=== PATIENT | female | born 1950 | race Hispanic/Latino ===

== ENCOUNTER 2018-09-11 10:33 | Inpatient (IN) | payer MEDICARE ==
[2018-09-11 11:16] VITALS: BMI 26.6
[2018-09-11] MEDS ORDERED: Sodium Chloride 0.9% 1,000 ML IV STA (11:20)
[2018-09-11 11:21] LABS: INR 1.24
[2018-09-11 11:23] LABS: BLOOD UREA NITROGEN 11 mg/dL (7-21); GFR NON-AFRICAN AMERICAN > 60
[2018-09-11 11:24] LABS: ALB/GLOB RATIO 1.1 (1.1-1.8); ALBUMIN 4.4 g/dL (3.0-4.8); BASO # 0.06 K/mm3 (0.0-2.0); BASO % 0.6 % (0.0-3.0); CALCIUM 9.4 mg/dL (8.4-10.5); EOS # 0.3 (0.0-0.7); EOS % 3.3 % (1.5-5.0); HEMOGLOBIN 11.3 g/dL (12.0-16.0); LYMPH # 1.4 (1.2-3.4); LYMPH % 13.8 % (22.0-35.0); MEAN CORPUSCULAR HEMOGLOBIN 31.1 pg (25.0-35.0); MEAN CORPUSCULAR HGB CONC 32.1 g/dl (31.0-37.0); MONO # 0.5 (0.1-0.6); MONO % 5.5 % (1.0-6.0); RBC 3.63 10^6/uL (3.5-6.1); RED CELL DISTRIBUTION WIDTH 13.2 % (11.5-14.5); WHITE BLOOD COUNT 9.8 10^3/uL (4.5-11.0)
[2018-09-11 11:25] LABS: ALT/SGPT 14 U/L (7-56); AST/SGOT 28 U/L (14-36); HDL CHOLESTEROL 41 mg/dL (29-60); LDL CHOLESTEROL 27 mg/dL (0-129)
[2018-09-11 11:26] LABS: TROPONIN I < 0.01 ng/mL
[2018-09-11] MEDS ORDERED: Iohexol 350 MG/100 ML VIAL ONE (11:29)
[2018-09-11] MEDS: Sodium Chloride 0.9% 1,000 ML IV SCH ×2 (11:30→20:00)
--- NOTE | 2018-09-11 11:31 | CT ---
Date of service: 09/11/2018 PROCEDURE: CT HEAD WITHOUT CONTRAST. HISTORY: Code stroke. Left lower extremity weakness COMPARISON: None available. TECHNIQUE: Axial computed tomography images were obtained through the head/brain without intravenous contrast. Radiation dose: Total exam DLP = 824.09 mGy-cm. This CT exam was performed using one or more of the following dose reduction techniques: Automated exposure control, adjustment of the mA and/or kV according to patient size, and/or use of iterative reconstruction technique. FINDINGS: HEMORRHAGE: No intracranial hemorrhage. BRAIN: Focal low attenuation noted at the upper portion of the left parietal lobe. There is also round focal hypodensity at the left aspect of the allyson. Mild volume loss and possible chronic microvascular ischemic changes. VENTRICLES: Unremarkable. No hydrocephalus. CALVARIUM: Unremarkable. PARANASAL SINUSES: Unremarkable as visualized. No significant inflammatory changes. MASTOID AIR CELLS: Unremarkable as visualized. No inflammatory changes. OTHER FINDINGS: None. IMPRESSION: No evidence of acute intracranial hemorrhage mass effect or midline shift. Ill defined focal hypodensity at the left basal ganglia may represent acute infarct. Low-attenuation focal in the upper left parietal lobe and in the left aspect of the allyson (may represent subacute infarct ). The above findings were reported to the emergency room at 11:10 a.m. on 09/11/2018
--- NOTE | 2018-09-11 11:31 | ED PDOC ---
Arrival/HPI - General Chief Complaint: Weakness/Neurological Deficit Time Seen by Provider: 09/11/18 11:03 Historian: Patient - History of Present Illness Narrative History of Present Illness (Text): 09/11/18 11:34 68 y/o F with a PMH of chronic neck pain presents to the Emergency Department, reports that she woke up with right leg weakness and was unable to ambulate. The R leg weakness has since resolved. However she also reports that she woke up with R arm weakness 3 days ago. She believed that this was related to her chronic neck pain which she receives injections for, so she did not seek emergency care at that time. The R arm weakness still persists. She states that she saw a neurologist, Dr. Santiago, who gave her paperwork to get labs and an MRI done. She was going to get imaging done today, but due to the new right leg weakness this morning, opted to come to the ED instead. Patient denies any other neurological symptoms: no vision change, dizziness or vertigo, facial droop, aphasia, sensory deficits, or left sided motor deficits. Patient denies any fevers, chills, headache, dizziness, chest pain, shortness of breath, dyspnea on exertion, cough, abdominal pain, nausea, vomiting, diarrhea, back pain, or any other complaint. Time/Duration: 4-6 hours Symptom Onset: Sudden Symptom Course: Unchanged Activities at Onset: Light Context: Home Past Medical History - Provider Review Nursing Documentation Reviewed: Yes - Cardiac Hx Cardiac Disorders: Yes Hx Hypertension: Yes - Pulmonary Hx Respiratory Disorders: Yes Hx Chronic Obstructive Pulmonary Disease (COPD): Yes - Neurological Hx Neurological Disorder: Yes Hx Transient Ischemic Attacks (TIA): Yes - HEENT Hx HEENT Disorder: No - Renal Hx Renal Disorder: No - Endocrine/Metabolic Hx Endocrine Disorders: No - Hematological/Oncological Hx Blood Disorders: No - Integumentary Hx Dermatological Disorder: No - Gastrointestinal Hx Gastrointestinal Disorders: No - Genitourinary/Gynecological Hx Genitourinary Disorders: No - Psychiatric Hx Psychophysiologic Disorder: No Hx Substance Use: No Family/Social History - Physician Review Nursing Documentation Reviewed: Yes Family/Social History: No Known Family HX Smoking Status: Unknown If Ever Smoked Hx Alcohol Use: No Hx Substance Use: No Allergies/Home Meds Allergies/Adverse Reactions: Allergies No Known Allergies Allergy (Verified 09/11/18 14:07) Home Medications: Home Meds Medication Instructions Recorded Confirmed Alprazolam [Xanax] 0.5 mg PO DAILY PRN 04/26/18 04/26/18 Gabapentin [Neurontin] 300 mg PO TID 04/26/18 04/26/18 Oxycodone HCl [Roxicodone] 30 mg PO BID 04/26/18 04/26/18 Rosuvastatin Calcium [Crestor] 10 mg PO DAILY 04/26/18 04/26/18 Tapentadol HCl [Nucynta] 50 mg PO Q6 04/26/18 04/26/18 Review of Systems - Physician Review All systems were reviewed & negative as marked: Yes - Review of Systems Constitutional: absent: Fevers Respiratory: absent: SOB, Cough Cardiovascular: absent: Chest Pain, Syncope Gastrointestinal: absent: Abdominal Pain Musculoskeletal: Arthralgias (R. leg weakness and R. arm weakness), Neck Pain (Chronic neck pain) Neurological: absent: Headache, Dizziness, Focal Weakness, Facial Droop Psychiatric: absent: Other (Aphasia) Physical Exam Vital Signs Reviewed: Yes Vital Signs Temp Pulse Resp BP Pulse Ox 09/11/18 11:26 98.8 F 86 17 133/70 95 09/11/18 10:45 98.8 F 96 H 17 144/88 96 Temperature: Afebrile Blood Pressure: Normal Pulse: Regular Respiratory Rate: Normal Appearance: Positive for: Well-Appearing Mental Status: Positive for: Alert and Oriented X 3 - Systems Exam Head: Present: Atraumatic, Normocephalic Pupils: Present: PERRL Mouth: Present: Moist Mucous Membranes Respiratory/Chest: Present: Clear to Auscultation, Respiratory Distress Cardiovascular: Present: Regular Rate and Rhythm Abdomen: No: Tenderness Upper Extremity: Present: Other (3/5 strength R. Arm, 5/5 strength L. Arm). No: Edema, Deformity Lower Extremity: Present: Other (5/5 strength on LE). No: Edema, Deformity Neurological: Present: GCS=15, Speech Normal Skin: Present: Warm, Dry Psychiatric: Present: Alert, Oriented x 3 Medical Decision Making ED Course and Treatment: 09/11/18 10:45 Impression: 68 y/o F presents to the Emergency Department complaining of R. leg weakness since since this morning (which has resolved) and R. arm weakness x3days. Plan: --Labs --Aspirin --Plavix --Saline IV --CTA Head/Neck --CT Head w/o contrast --EKG --CXR --Reassess and disposition Prior Visits: Notes and results from previous visits were reviewed. Patient called as a code stroke upon arrival due to new right leg weakness. On exam however leg weakness has resolved. Right arm weakness from three days ago persists. Patient went to CT. 09/11/18 11:[address]: No evidence of acute intracranial hemorrhage mass effect or midline shift. Ill defined focal hypodensity at the left basal ganglia may represent acute infarct. Low-attenuation focal in the upper left parietal lobe and in the left aspect of the allyson (may represent subacute infarct ). 09/11/18 11:16 EKG shows NSR at 88 BPM with normal QRS, normal axis, normal intervals, no acute ST/T wave abnormalities. Interpreted by me. 09/11/18 11:[address] Platt. Patient not a tPA candidate due to resolution of R leg weakness and prolonged duration (3 days) of R arm weakness, but can load with Plavix 300mg and give ASA 81mg. Get CTA head/neck, give IV fluids for permi ssible hypertension (BP systolic currently 144), keep HOB down 30 degrees. Imaging and plavix ordered, however patient states she took a baby ASA this morning (she does not take this daily, just did so today and yesterday due to the CVA symptoms). 1L NS bolus also ordered. Patient went to CTA. 09/11/18 12:20 p.m. Head/Neck CTA: No evidence of arterial occlusion or critical stenosis in the major intracranial and neck arteries. Partially imaged mass lesion at the central portion of the right lung extending to the right hilum suspicious for malignant neoplasm. Redemonstrated is hypodensity at the left parietal lobe may represent metastasis. 09/11/18 12:20 Radiology called, CTA neck shows R upper lung mass. Parietal lesion may represent metastasis rather than infarct. Advised CT chest for further evaluation, which was ordered. Findings discussed with patient and , who verbalized understanding. 09/11/18 12:38 New radiological findings discussed with Dr. Platt. Advised getting MRI brain both with and without contrast. 09/11/18 12:[address] Orozco admitting for Dr. Andersen, accepts patient to her service for admission. 09/11/18 13:[address]: 1. Evaluation is limited in the absence of intravenous contrast. Findings are most compatible with right suprahilar and perihilar malignant mass with postobstructive pneumonia in the right middle lobe and metastatic mediastinal lymphadenopathy. Central low-attenuation in the primary mass and lymph nodes most compatible with squamous cell carcinoma. 3. 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 09/11/18 13:25 Chest XRAY: Masslike opacity in the right perihilar region and middle lobe which may represent mass causing central obstruction with postobstructive pneumonia. Correlation with CT scan with intravenous contrast is recommended. - Lab Interpretations Lab Results: PT 14.0 SECONDS (9.4-12.5) H 09/11/18 10:50 INR 1.24 09/11/18 10:50 APTT 33.0 Seconds (26.9-38.3) 09/11/18 10:50 Troponin I < 0.01 ng/mL 09/11/18 10:50 Total Bilirubin 0.3 mg/dL (0.2-1.3) 09/11/18 10:50 AST 28 U/L (14-36) 09/11/18 10:50 ALT 14 U/L (7-56) 09/11/18 10:50 Alkaline Phosphatase 109 U/L (38-126) 09/11/18 10:50 Total Protein 8.4 g/dL (5.8-8.3) H 09/11/18 10:50 Albumin 4.4 g/dL (3.0-4.8) 09/11/18 10:50 Globulin 4.1 gm/dL 09/11/18 10:50 Albumin/Globulin Ratio 1.1 (1.1-1.8) 09/11/18 10:50 - RAD Interpretation Radiology Orders: 09/11/18 11:14 CHEST PORTABLE [RAD] Stat 09/11/18 11:20 CTA HEAD/NECK CODE STROKE [CT] Stat HEAD W/O (CODE STROKE) [CT] Stat - Medication Orders Current Medication Orders: Sodium Chloride (Sodium Chloride 0.9%) 1,000 mls @ 100 mls/hr IV .Q10H REGINE Sodium Chloride (Sodium Chloride 0.9%) 1,000 mls @ 999 mls/hr IV .Q1H1M STA Stop: 09/11/18 12:20 Discontinued Medications Aspirin (Aspirin Chewable) 81 mg PO STAT STA Stop: 09/11/18 11:21 Clopidogrel Bisulfate (Plavix) 300 mg PO STAT STA Stop: 09/11/18 11:21 NIHSS Scale ([place]) Time Performed: 10:50 - How Severe is the Stoke Baseline Level of Consciousness: 0=Alert LOC to Questions: 0=Both comments correct LOC to commands: 0=Obeys both correctly Best Gaze: 0=Normal Visual: 0=No visual loss Facial: 0=Normal Motor Arm - Left: 0=No drift Motor Arm - Right: 3=No effort against gravity (falls immediately) Motor Leg - Left: 0=No drift Motor Leg - Right: 0=No drift Limb Ataxia: 0=Absent Sensory: 0=Normal Best Language: 0=No aphasia Dysarthia: 0=Normal articulation Extinction & Inattention (Neglect): 0=Normal, no object Score: 3 Risk Level: Minor Stroke Risk - PA / [employer] / Resident Statement MD/DO has reviewed & agrees with the documentation as recorded. - Scribe Statement The provider has reviewed the documentation as recorded by the Kwame Huizar All medical record entries made by the Kwame were at my direction and personally dictated by me. I have reviewed the chart and agree that the record accurately reflects my personal performance of the history, physical exam, medical decision making, and the department course for this patient. I have also personally directed, reviewed, and agree with the discharge instructions and disposition. Disposition/Present on Arrival - Present on Arrival Any Indicators Present on Arrival: No History of DVT/PE: No History of Uncontrolled Diabetes: No Urinary Catheter: No History of Decub. Ulcer: No History Surgical Site Infection Following: None - Disposition Have Diagnosis and Disposition been Completed?: Yes Diagnosis: CVA (cerebral vascular accident), Mass of right lung Disposition: HOSPITALIZED Disposition Time: 12:51 Patient Plan: Admission Condition: STABLE
--- NOTE | 2018-09-11 12:31 | CT ---
Date of service: 09/11/2018 PROCEDURE: CT Angiography of the neck and brain. HISTORY: cva, left lower extremity weakness COMPARISON: None available. TECHNIQUE: CT angiography of the neck and intracranial arteries was performed. Coronal and sagittal maximum intensity projection reformated images were generated. Radiation dose: Total exam DLP = 377.23 mGy-cm. This CT exam was performed using one or more of the following dose reduction techniques: Automated exposure control, adjustment of the mA and/or kV according to patient size, and/or use of iterative reconstruction technique. FINDINGS: RIGHT CAROTID ARTERIES: Common Carotid Artery: Normal. Carotid Bifurcation: No evidence of significant stenosis. Internal Carotid Artery:Normal. External Carotid Artery (proximal branches): Normal. LEFT CAROTID ARTERIES: Common Carotid Artery: Normal. Carotid Bifurcation: No evidence of significant stenosis Internal Carotid Artery:Normal. External Carotid Artery (proximal branches): Normal. VERTEBRAL ARTERIES: Right Vertebral Artery: Normal. Left Vertebral Artery: Normal. OTHER FINDINGS: no aortic atherosclerotic calcification or mural plaque present. There is partially imaged mass lesion at the central portion of the right lung extending to the right hilum and associated with mediastinal lymphadenopathy suspicious for malignant neoplasm. INTERNAL CEREBRAL ARTERIES: Unremarkable. The skull base, petrous, cavernous and supraclinoid segments are bilaterally widely patent. ANTERIOR CEREBRAL ARTERIES: Unremarkable. A1 and A2 segments are widely patent. Smaller distal branches unremarkable, as visualized. MIDDLE CEREBRAL ARTERIES: Unremarkable. M1 and M2 segments are widely patent. Perisylvian branches grossly symmetric. POSTERIOR CIRCULATION: Basilar Artery: Unremarkable. Distal Vertebral Arteries: Unremarkable. Posterior Cerebral Arteries: Unremarkable. Posterior Inferior Cerebellar Arteries: Unremarkable. ANEURYSM/ VASCULAR MALFORMATIONS: None. OTHER FINDINGS: None. IMPRESSION: No evidence of arterial occlusion or critical stenosis in the major intracranial and neck arteries. Partially imaged mass lesion at the central portion of the right lung extending to the right hilum suspicious for malignant neoplasm. Redemonstrated is hypodensity at the left parietal lobe may represent metastasis. The above findings were reported to and discussed with the emergency room physician taking care of the patient at 12:20 p.m. on 09/11/2018
--- NOTE | 2018-09-11 13:14 | CT ---
Date of service: 09/11/2018 PROCEDURE: CT Chest without contrast HISTORY: further eval of mass found on R lung on cta neck COMPARISON: None available. TECHNIQUE: Contiguous axial images were obtained through the chest without intravenous contrast enhancement. Sagittal and coronal reconstructions were performed. Radiation dose: Total exam DLP = 160.59 mGy-cm. This CT exam was performed using one or more of the following dose reduction techniques: Automated exposure control, adjustment of the mA and/or kV according to patient size, and/or use of iterative reconstruction technique. FINDINGS: LUNGS: There is diffuse centrilobular emphysema in the lungs. There is abnormal low attenuation soft tissue in the right perihilar region with obstruction of the right middle lobe bronchus. There is airspace disease in the right middle lobe with multifocal areas of low-attenuation and cavitation. There is interlobular septal thickening in the right upper lobe. There is discoid subsegmental atelectasis in the right lower lobe. MEDIASTINUM: No aneurysm. Normal sized heart. Main pulmonary artery unremarkable. No vascular congestion. There are multiple mediastinal lymph nodes with central low attenuation, the largest subcarinal lymph node measures 2.6 x 2.4 cm enlarged precarinal lymph node with central low attenuation. There are multiple subcentimeter. There are aortic atherosclerotic calcification. PLEURA: No pleural fluid. No pneumothorax. BONES: No fracture. No destructive lesion. There is diffuse bone demineralization and multilevel degenerative changes in the spine. UPPER ABDOMEN: Grossly unremarkable. OTHER FINDINGS: There is elevation of the right hemidiaphragm. IMPRESSION: 1. Evaluation is limited in the absence of intravenous contrast. Findings are most compatible with right suprahilar and perihilar malignant mass with postobstructive pneumonia in the right middle lobe and metastatic mediastinal lymphadenopathy. Central low-attenuation in the primary mass and lymph nodes most compatible with squamous cell carcinoma. 3. 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
--- NOTE | 2018-09-11 13:17 | RAD ---
Date of service: 09/11/2018 HISTORY: Code Stroke COMPARISON: No prior. FINDINGS: LUNGS: There is masslike opacity in the right perihilar region and middle lobe. The lungs are hyperinflated and there is peribronchial thickening with chronic changes in both lungs. PLEURA: No pleural effusions or pneumothorax. CARDIOVASCULAR: The heart is normal in size. No aortic atherosclerotic calcifications present. OSSEOUS STRUCTURES: Within normal limits for the patient's age. VISUALIZED UPPER ABDOMEN: Normal. OTHER FINDINGS: There is elevation of the right hemidiaphragm. IMPRESSION: Masslike opacity in the right perihilar region and middle lobe which may represent mass causing central obstruction with postobstructive pneumonia. Correlation with CT scan with intravenous contrast is recommended.
[2018-09-11] MEDS ORDERED: Gadodiamide 287 MG/ML VIAL (15ML) IV ONE (14:19)
--- NOTE | 2018-09-11 14:49 | MRI ---
Date of service: 09/11/2018 PROCEDURE: MRI BRAIN WITH AND WITHOUT CONTRAST HISTORY: cva COMPARISON: Comparison is made to the previous study dated 07/24/2013 TECHNIQUE: Multiplanar, multisequence MR images of the brain were obtained with and without intravenous contrast enhancement. FINDINGS: HEMORRHAGE: None DWI: No evidence of an acute or early subacute infarction. BRAIN PARENCHYMA: There are ring-enhancing mass lesions in the inferior aspect of the left allyson in the left superior parietal frontal lobe and in the right posterior parietal occipital lobe surrounding with vasogenic edema highly suspicious for metastasis. There is diffuse edema involving the mid and inferior aspect of the allyson and extending to the left cerebral peduncle adjacent to the ring-enhancing 1.2 centimeter mass in the left inferior allyson. Mild volume loss and mild white matter changes likely represent chronic microvascular ischemic disease. ENHANCEMENT: Ring-enhancing brain lesion at the left allyson, left superior parietal lobe and right posterior parietal occipital lobe suggestive of metastasis likely from the patient's right lung mass. VENTRICLES: Unremarkable. No hydrocephalus. CRANIUM: Unremarkable. ORBITS: Grossly unremarkable. PARANASAL SINUSES/MASTOIDS: Mild mucosal thickening noted in the ethmoid sinuses. VASCULAR SYSTEM: Skull base flow voids intact. OTHER FINDINGS: None . IMPRESSION: No evidence of diffusion restriction to suggest acute or early subacute infarct. No evidence of acute intracranial hemorrhage. Ring-enhancing lesions in the left allyson left superior parietal and right posterior parietal occipital lobes surrounding with vasogenic edema consistent with brain metastasis likely from the patient's right lung mass.
--- NOTE | 2018-09-11 15:53 | CP.PCM.CON ---
<Hemant Sheikh - Last Filed: 09/11/18 18:01> History of Present Illness - History of Present Illness History of Present Illness: Hemant Sheikh PGY2 Neurology Consult Note for Dr. Platt 68 y/o F with a PMH of chronic neck pain presents with right leg weakness and right arm weakness. She states the right arm weakness began 3 days ago after she woke up from bed. Initially she believed that this was related to her chronic neck pain which she received injections. She saw a neurologist, Dr. Santiago, who gave her paperwork to get labs and an MRI done. However this morning she developed right leg weakness and decided to come to the hospital. Patient states she is unable to lift her right arm and is very annoyed because of it. She denies change in vision, slurring of speech, headaches, syncope, LOC, fall, dizziness, fever, chills, SOB, N/V or any other complaints at this time. PMH: chronic neck pain PSH: denies Allergies: NKDA Meds: Nucynta, crestor, nortryptyline, gabapentin Family Hx: denies Review of Systems - Neurological Neurological: Focal Weakness Past Patient History - Past Social History Smoking Status: Unknown If Ever Smoked - CARDIAC Hx Cardiac Disorders: Yes Hx Hypertension: Yes - PULMONARY Hx Respiratory Disorders: Yes Hx Chronic Obstructive Pulmonary Disease (COPD): Yes - NEUROLOGICAL Hx Neurological Disorder: Yes Hx Transient Ischemic Attacks (TIA): Yes - HEENT Hx HEENT Problems: No - RENAL Hx Chronic Kidney Disease: No - ENDOCRINE/METABOLIC Hx Endocrine Disorders: No - HEMATOLOGICAL/ONCOLOGICAL Hx Blood Disorders: No - INTEGUMENTARY Hx Dermatological Problems: No - GASTROINTESTINAL Hx Gastrointestinal Disorders: No - GENITOURINARY/GYNECOLOGICAL Hx Genitourinary Disorders: No - PSYCHIATRIC Hx Psychophysiologic Disorder: No Hx Substance Use: No Meds Allergies/Adverse Reactions: Allergies Allergy/AdvReac Type Severity Reaction Status Date / Time No Known Allergies Allergy Verified 09/11/18 14:07 - Medications Medications: Current Medications Atorvastatin Calcium (Lipitor) 40 mg PO DIN [facility] Gabapentin (Neurontin) 300 mg PO TID [facility]; Protocol Home Med (Home Med) 1 unit PO BID [facility] Sodium Chloride (Sodium Chloride 0.9%) 1,000 mls @ 100 mls/hr IV .Q10H [facility] Last Admin: 09/11/18 11:30 Dose: Not Given Nortriptyline HCl (Pamelor) 10 mg PO HS [facility] Physical Exam - Constitutional Appears: Non-toxic, No Acute Distress - Head Exam Head Exam: ATRAUMATIC, NORMAL INSPECTION, NORMOCEPHALIC - Eye Exam Eye Exam: EOMI, Normal appearance, PERRL - ENT Exam ENT Exam: Mucous Membranes Moist - Respiratory Exam Respiratory Exam: Clear to Auscultation Bilateral, NORMAL BREATHING PATTERN - Cardiovascular Exam Cardiovascular Exam: REGULAR RHYTHM, +S1, +S2 - GI/Abdominal Exam GI & Abdominal Exam: Normal Bowel Sounds, Soft - Neurological Exam Neurological exam: Alert, Oriented x3 Additional comments: 5/5 TEE strength, 2/5 RUE, sensation in tact bilaterally. 4/5 LE strength B/L right facial droop slight patella reflex brisk on right side Results - Vital Signs Recent Vital Signs: Last Vital Signs Temp 98.8 F 09/11/18 11:26 Pulse 80 09/11/18 14:47 Resp 16 09/11/18 14:47 BP 141/71 09/11/18 14:47 Pulse Ox 96 09/11/18 14:47 - Labs Result Diagrams: 09/11/18 10:50 09/11/18 10:50 Labs: Laboratory Results - last 24 hr 09/11/18 09/11/18 09/11/18 10:50 10:50 10:50 WBC 9.8 RBC 3.63 Hgb 11.3 L Hct 35.2 L MCV 97.0 MCH 31.1 MCHC 32.1 RDW 13.2 Plt Count 444 MPV 8.0 Neut % (Auto) 76.8 H Lymph % (Auto) 13.8 L [place] % (Auto) 5.5 Eos % (Auto) 3.3 Baso % (Auto) 0.6 Lymph # (Auto) 1.4 [place] # (Auto) 0.5 Eos # (Auto) 0.3 Baso # (Auto) 0.06 Absolute Neuts (auto) 7.55 H PT 14.0 H INR 1.24 APTT 33.0 Sodium 142 Potassium 3.3 L Chloride 103 Carbon Dioxide 30 Anion Gap 12 BUN 11 Creatinine 0.7 Est GFR ( Amer) > 60 Est GFR (Non-Af Amer) > 60 Random Glucose 118 H Calcium 9.4 Total Bilirubin 0.3 AST 28 ALT 14 Alkaline Phosphatase 109 Troponin I < 0.01 Total Protein 8.4 H Albumin 4.4 Globulin 4.1 Albumin/Globulin Ratio 1.1 Triglycerides 134 Cholesterol 264 H LDL Cholesterol Direct 27 HDL Cholesterol 41 Blood Type Blood Type Confirm Antibody Screen BBK History Checked 09/11/18 09/11/18 10:50 14:00 WBC RBC Hgb Hct MCV MCH MCHC RDW Plt Count MPV Neut % (Auto) Lymph % (Auto) [place] % (Auto) Eos % (Auto) Baso % (Auto) Lymph # (Auto) [place] # (Auto) Eos # (Auto) Baso # (Auto) Absolute Neuts (auto) PT INR APTT Sodium Potassium Chloride Carbon Dioxide Anion Gap BUN Creatinine Est GFR ( Amer) Est GFR (Non-Af Amer) Random Glucose Calcium Total Bilirubin AST ALT Alkaline Phosphatase Troponin I Total Protein Albumin Globulin Albumin/Globulin Ratio Triglycerides Cholesterol LDL Cholesterol Direct HDL Cholesterol Blood Type O POSITIVE Blood Type Confirm O POSITIVE Antibody Screen Negative BBK History Checked No verified bt Assessment & Plan - Assessment and Plan (Free Text) Assessment: 68 y/o F with a PMH of chronic neck pain presents with right leg weakness and right arm weakness. Plan: RUE weakness and RLE secondary to mestastes to brain and mass effect of tumors -aspirin statin given in ED -CT head showed possible mestastasis -CT chest showed hilar mass in right middle lobe and mestastatic mediastinal lymphadenopathy, intelobar septal thickening in right upper lobe -MRI brain shows ring enhancing lesions in left allyson, left superior parietal and right posterior occipital lobes with vasiogenic edema consistent with brain metastases -started on Decadron 10mng IV Q8H -Keppra 500 q12 -continue to monitor neuro status <Yordan Platt - Last Filed: 09/13/18 16:13> Meds - Medications Medications: Current Medications Acetaminophen (Tylenol 325mg Tab) 650 mg PO Q6H PRN PRN Reason: Pain, Mild (1-3) Last Admin: 09/12/18 04:31 Dose: 650 mg Albuterol/Ipratropium (Duoneb 3 Mg/0.5 Mg (3 Ml) Ud) 3 ml IH Q2H PRN PRN Reason: Shortness of Breath Last Admin: 09/12/18 01:18 Dose: 3 ml Atorvastatin Calcium (Lipitor) 40 mg PO DIN [facility] Last Admin: 09/12/18 18:08 Dose: 40 mg Gabapentin (Neurontin) 300 mg PO 0600,1600,2200 [facility]; Protocol Last Admin: 09/13/18 05:19 Dose: 300 mg Home Med (Home Med) 1 unit PO 1600,2200 [facility] Last Admin: 09/12/18 23:39 Dose: 1 unit Dexamethasone 10 mg/ Sodium (Chloride) 52.5 mls @ 150 mls/hr IV Q8 [facility] Last Admin: 09/13/18 14:58 Dose: 150 mls/hr Cefepime HCl (Maxipime 1gm) 1 gm in 100 mls @ 25 mls/hr IVPB Q12 [facility]; Protocol Last Admin: 09/13/18 10:17 Dose: 25 mls/hr Azithromycin (Zithromax 500mg In Ns) 500 mg in 250 mls @ 167 mls/hr IVPB DAILY [facility]; Protocol Last Admin: 09/13/18 11:17 Dose: 167 mls/hr Insulin Human Regular (Humulin R Low) 0 units SC ACHS [facility]; Protocol Last Admin: 09/13/18 11:36 Dose: 2 units Levetiracetam (Keppra) 500 mg PO BID [facility] Last Admin: 09/13/18 10:16 Dose: 500 mg Nortriptyline HCl (Pamelor) 10 mg PO HS [facility] Last Admin: 09/12/18 22:15 Dose: 10 mg Oxycodone HCl (Oxycontin Extended Release Tab) 40 mg PO 0600 [facility] Last Admin: 09/13/18 05:19 Dose: 40 mg Results - Vital Signs Recent Vital Signs: Last Vital Signs Temp 97.8 F 09/13/18 08:20 Pulse 85 09/13/18 08:20 Resp 20 09/13/18 08:20 BP 149/79 09/13/18 08:20 Pulse Ox 95 09/13/18 08:20 - Labs Result Diagrams: 09/12/18 13:10 09/12/18 13:10 Labs: Laboratory Results - last 24 hr 09/12/18 09/13/18 09/13/18 21:33 07:12 11:03 POC Glucose (mg/dL) 198 H 147 H 209 H 09/13/18 15:53 POC Glucose (mg/dL) 136 H Attending/Attestation - Attestation I have personally seen and examined this patient.: Yes I have fully participated in the care of the patient.: Yes I have reviewed all pertinent clinical information: Yes Notes (Text): I agree with the assessment and plan. Consult requested by Dr. Orozco. Symptoms are likely due to metastatic lung cancer. Will evaluate further with MRI and treat with steroids and Keppra. Thank you.
--- NOTE | 2018-09-11 17:08 | CARD ---
APPROVED REPORT Date of service: 09/11/2018 EKG Measurement Heart [id number] <Conclusion> Normal sinus rhythm Normal ECG
[2018-09-11] MEDS: TAPENTADOL 100 MG PO SCH (17:25)
[2018-09-11] MEDS: Dexamethasone 10 MG in Sodium Chloride 0.9% 50 ML IV SCH ×2 (18:03→21:08)
[2018-09-11] MEDS ORDERED: Influenza Vaccine 60 mcg/0.5 mL SYR (4YR UP) IM ONE (18:13)
[2018-09-11] MEDS ORDERED: Pneumococcal 23-Valent Vaccine IM ONE (18:13)
[2018-09-11] MEDS ORDERED: Albuterol-Ipratrop 3 mg / 0.5 (3 ml) UD IH PRN (19:57)
[2018-09-11] MEDS: Cefepime 1gm in NS 100ml 1 GM/100 ML BAG IVPB SCH (21:09)
--- NOTE | 2018-09-11 22:16 | HP ---
DATE OF EXAM: 09/11/2018 HISTORY OF PRESENT ILLNESS: The patient is a 68-year-old female. She usually suffers from chronic cervical disk disease. She usually takes pain medication and has been following with the pain management. The patient states three days ago, she woke up with right-sided weakness, she attributed to her neck pain and thought she is going to get better, but today morning when she woke up, she noticed weakness in her right leg. Also, she saw Dr. Santiago who advised her to go for further workup and had MRI done, but this morning when she got up, she had right weakness and she thought of probably having stroke, so she came to emergency room for further evaluation. No history of headache. No nausea. No vomiting. No diarrhea. No chest pain. No shortness of breath. Does have right arm weakness. PAST MEDICAL HISTORY: Significant for chronic neck pain and back pain. ALLERGIES: SHE IS NOT ALLERGIC TO ANY MEDICATION. MEDICATIONS AT HOME: She is on: 1. Gabapentin 300 three times a day. 2. Nortriptyline 10 mg at bedtime. 3. Crestor 10 mg daily. 4. Nucynta. SOCIAL HISTORY: She is an active smoker. She smokes one pack a day and socially drinks. PHYSICAL EXAMINATION: GENERAL: She is awake and alert and able to communicate. VITAL SIGNS: She is afebrile, pulse 101, respirations 18, and blood pressure 147/70. LUNGS: Bilateral good airflow. No rhonchi or crackle. HEART: S1 and S2 audible. ABDOMEN: Soft and nontender. No rebound. No guarding. NEUROLOGIC: She is awake and alert and able to communicate. She has right arm weakness, has positive pronator drift. LABORATORY DATA: WBC is 9.8, hemoglobin is 11.3, hematocrit is 35.2, and platelets are 444. PT of 14 and INR of 1.24. Chemistry; sodium 142, potassium 3.3, chloride 103, CO2 of 30, BUN 11, creatinine 0.7, and blood sugar 118. LFTs are within normal limits. Total cholesterol 264. Hemoglobin A1c 6.1. She had CT angio done that shows no evidence of arterial occlusion or critical stenosis in the major intracranial or neck artery partially imaged mass or lesion at the central portion of the right upper lung extending to the right hilum suspicious for malignant neoplasm. She had MRI of the brain done that shows no evidence of diffusion or restriction to suggest acute or early subacute infarct. No evidence of acute intracranial hemorrhage, ring enhancing lesion in the left allyson, left superior partial and right posterior parietal occipital lobe surrounding with vasogenic edema consistent with brain metastasis. She had CT scan of the chest done that was consistent with right suprahilar and perihilar malignant masses, post-obstructive pneumonia in the right middle lobe and mediastinal metastasis and intralobular septal thickening in the right upper lobe and most compatible with lymphangitic carcinomatosis. ASSESSMENT: 1. Right suprahilar and perihilar malignant mass, probably metastases to the allyson. 2. Right upper arm weakness. 3. Post-obstructive pneumonia. 4. Hyperlipidemia. PLAN: The patient has been started on IV steroid. She has been started on Keppra and started on Lipitor. She is on gabapentin and nortriptyline. I will request Dr. Eliezer Walker for CT-guided biopsy, Dr. Santos for evaluation of mass. We will start her on nebulizer treatment and start her on IV antibiotic. We will follow up in a.m. Tito Orozco MD
[2018-09-12] MEDS: Dexamethasone 10 MG in Sodium Chloride 0.9% 50 ML IV SCH ×3 (05:36→22:15)
[2018-09-12] MEDS: Cefepime 1gm in NS 100ml 1 GM/100 ML BAG IVPB SCH ×2 (09:38→22:16)
[2018-09-12] MEDS: Azithromycin 500MG/NS 250ml 500 MG/250 ML BAG IVPB SCH (11:06)
--- NOTE | 2018-09-12 12:15 | CP.PCM.PN ---
Subjective - Date & Time of Evaluation Date of Evaluation: 09/12/18 Time of Evaluation: 12:12 - Subjective Subjective: Neuro Follow-Up Note: Mrs. Price was evaluated this morning at bedside. Pt states that she is feeling better today. Per pt she is now able to move her right arm and can form a fist, which she admits not being able to do yesterday. She is aware of her MRI results. Presently she denies h/a, dizziness, visual changes, chest pain, pa lpitations, sob, cough, abd pain, n/v/d, fever/chills. Objective - Vital Signs/Intake and Output Vital Signs (last 24 hours): Temp Pulse Resp BP Pulse Ox 97.5 F L 91 H 20 148/77 96 09/12/18 06:00 09/12/18 10:00 09/12/18 06:00 09/12/18 06:00 09/12/18 06:00 Intake and Output: 09/12/18 09/12/18 06:59 18:59 Intake Total 520 Output Total 540 Balance -20 - Medications Medications: Current Medications Acetaminophen (Tylenol 325mg Tab) 650 mg PO Q6H PRN PRN Reason: Pain, Mild (1-3) Last Admin: 09/12/18 04:31 Dose: 650 mg Albuterol/Ipratropium (Duoneb 3 Mg/0.5 Mg (3 Ml) Ud) 3 ml IH Q2H PRN PRN Reason: Shortness of Breath Last Admin: 09/12/18 01:18 Dose: 3 ml Atorvastatin Calcium (Lipitor) 40 mg PO DIN [facility] Last Admin: 09/11/18 17:10 Dose: 40 mg Gabapentin (Neurontin) 300 mg PO 0600,1600,2200 [facility]; Protocol Home Med (Home Med) 1 unit PO 1600,2200 [facility] Dexamethasone 10 mg/ Sodium (Chloride) 52.5 mls @ 150 mls/hr IV Q8 [facility] Last Admin: 09/12/18 05:36 Dose: 150 mls/hr Cefepime HCl (Maxipime 1gm) 1 gm in 100 mls @ 25 mls/hr IVPB Q12 [facility]; Protocol Last Admin: 09/12/18 09:38 Dose: 25 mls/hr Azithromycin (Zithromax 500mg In Ns) 500 mg in 250 mls @ 167 mls/hr IVPB DAILY [facility]; Protocol Last Admin: 09/12/18 11:06 Dose: 167 mls/hr Levetiracetam (Keppra) 500 mg PO BID [facility] Last Admin: 09/12/18 09:38 Dose: 500 mg Nortriptyline HCl (Pamelor) 10 mg PO HS [facility] Last Admin: 09/11/18 21:38 Dose: 10 mg Oxycodone HCl (Oxycontin Extended Release Tab) 40 mg PO 0600 [facility] - Labs Labs: 09/11/18 10:50 09/11/18 10:50 PT 14.0 SECONDS (9.4-12.5) H 09/11/18 10:50 INR 1.24 09/11/18 10:50 APTT 33.0 Seconds (26.9-38.3) 09/11/18 10:50 - Constitutional Appears: Well, Non-toxic, No Acute Distress - Head Exam Head Exam: ATRAUMATIC, NORMAL INSPECTION, NORMOCEPHALIC - Eye Exam Eye Exam: EOMI, Normal appearance, PERRL. absent: Nystagmus Pupil Exam: NORMAL ACCOMODATION, PERRL - ENT Exam ENT Exam: Mucous Membranes Moist - Neck Exam Neck Exam: Full ROM, Normal Inspection - Respiratory Exam Respiratory Exam: NORMAL BREATHING PATTERN - Extremities Exam Extremities Exam: absent: Calf Tenderness, Full ROM, Pedal Edema Additional comments: FROM to LUE, BLE Decreased ROM to RUE however pt able to lift arm today - Back Exam Back Exam: Full ROM - Neurological Exam Neurological Exam: Alert, Awake, CN II-XII Intact, Oriented x3, Reflexes Normal Neuro motor strength exam: Left Upper Extremity: 5 (client services administrator 5/5), Right Upper Extremity: 3 (client services administrator 3/5), Left Lower Extremity: 5 (plantar flexion 5/5), Right Lower Extremity: 5 (plantar flexion 5/5) Additional comments: Speech clear, fluid No facial asymmetry noted FROM to LUE, BLE Decreased ROM to RUE however pt able to lift arm today No tremors or abnormal movements. No sensory deficits. - Psychiatric Exam Psychiatric exam: Normal Affect, Normal Mood - Skin Skin Exam: Normal Color Assessment and Plan (1) Brain metastasis Assessment & Plan: Imaging reviewed: -MRI Brain (09/11/18): No evidence of diffusion restriction to suggest acute or early subacute infarct. No evidence of acute intracranial hemorrhage. Ring- enhancing lesions in the left allyson left superior parietal and right posterior parietal occipital lobes surrounding with vasogenic edema consistent with brain metastasis likely from the patient's right lung mass. -CTA Head and neck (09/11/18): No evidence of arterial occlusion or critical stenosis in the major intracranial and neck arteries. Partially imaged mass lesion at the central portion of the right lung extending to the right hilum suspicious for malignant neoplasm. Redemonstrated is hypodensity at the left parietal lobe may represent metastasis. -CT Head (09/11/18): No evidence of acute intracranial hemorrhage mass effect or midline shift. Ill defined focal hypodensity at the left basal ganglia may represent acute infarct. Low-attenuation focal in the upper left parietal lobe and in the left aspect of the allyson (may represent subacute infarct ). -Right sided weakness improving. -Continue PT/OT -Pt is for lung biopsy this week. -Continue Decadron q8 for now; Continue Keppra q12. -Oncology consult pending. -Notify neuro team of any acute change in pt;s condition. Nichole Le, VILMA, DIRECTOR ADVERTISING Discussed with Dr. Platt Status: Acute
[2018-09-12] MEDS ORDERED: Barium Sulfate Susp 2.1% w/v, 2.0% w/w 450 mL Bottle PO ONE (12:27)
[2018-09-12] MEDS ORDERED: Iohexol 350 MG/100 ML VIAL ONE (12:39)
[2018-09-12 13:22] LABS: HEMOGLOBIN 10.6 g/dL (12.0-16.0); LYMPH # 0.8 (1.2-3.4); LYMPH % 7.3 % (22.0-35.0); MEAN CELL VOLUME 94.8 fl (80.0-105.0); MEAN CORPUSCULAR HEMOGLOBIN 30.7 pg (25.0-35.0); MEAN CORPUSCULAR HGB CONC 32.4 g/dl (31.0-37.0); MEAN PLATELET VOLUME 7.8 fl (7.0-11.0); MONO # 0.2 (0.1-0.6); MONO % 1.5 % (1.0-6.0); PLATELET COUNT 434 10^3/uL (120.0-450.0); RBC 3.45 10^6/uL (3.5-6.1); WHITE BLOOD COUNT 11.3 10^3/uL (4.5-11.0)
[2018-09-12 13:49] LABS: ALB/GLOB RATIO 1.1 (1.1-1.8); ALBUMIN 4.2 g/dL (3.0-4.8); ALT/SGPT 17 U/L (7-56); AST/SGOT 44 U/L (14-36); BLOOD UREA NITROGEN 10 mg/dL (7-21); CALCIUM 9.5 mg/dL (8.4-10.5); GFR NON-AFRICAN AMERICAN > 60
--- NOTE | 2018-09-12 13:52 | PN ---
DATE: 09/12/2018 SUBJECTIVE: The patient is 68-year-old, came to emergency room left upper and lower extremity weakness started on 3 days ago got worse yesterday morning, so came to ER had CTA and MRI done that shows in the left and right posterior parietal occipital lobe surrounding vasogenic edema consistent with brain mets. The patient was seen and examined, seems to be little upset about feeling alright, otherwise complaints of some neck pain, right upper extremity weakness. PHYSICAL EXAMINATION: VITAL SIGNS: The patient is afebrile. Pulse 90, respiration 20 and blood pressure 148/77. LUNGS: Bilateral fair airflow. No rhonchi or crackle. HEART: S1 and S2, audible. ABDOMEN: Soft and nontender. No rebound. No guarding. NEUROLOGIC: The patient is awake, alert and able to communicate. LABORATORY DATA: Hemoglobin A1C 6.1. ASSESSMENT: 1. Right suprahilar and perihilar malignant mass with post obstructive pneumonia in the right middle lobe and metastatic mediastinal lymphadenopathy. 2. Chronic degenerative disk disease. 3. Active smoker. 4. Left upper and lower extremity weakness. PLAN: Currently, the patient is on dexamethasone, she is on nebulizer treatment. She is on Keppra. She has been started on Lipitor. We will continue on Maxipime and gabapentin. She is on OxyContin. She is on Zithromax spoke to Dr. Eliezer Walker for CT-guided biopsy and awaiting Dr. Santos's input also. Tito Orozco MD
[2018-09-12 13:56] LABS: LYMPHOCYTE 3 % (22.0-35.0); NEUTROPHIL 97 % (50.0-70.0); PLATELET ESTIMATE NORMAL (NORMAL)
[2018-09-12] MEDS ORDERED: Insulin Regular 1 UNITS/0.01 ML ML SC ONE (14:00)
[2018-09-12] MEDS: TAPENTADOL 100 MG PO SCH ×3 (14:09→23:39)
[2018-09-12] MEDS ORDERED: Lidocaine 1% Inj (20ml) ONE (16:59)
[2018-09-12] MEDS ORDERED: Midazolam 2 MG/2 ML VIAL ONE (16:59)
[2018-09-12] MEDS: Insulin Reg-LOW-Coverage SC SCH ×2 (18:00→22:27)
[2018-09-13] MEDS: Dexamethasone 10 MG in Sodium Chloride 0.9% 50 ML IV SCH ×3 (05:18→21:30)
[2018-09-13] MEDS: oxyCODONE 20 mg ER Tab (oxyCONTIN) PO SCH (05:19)
[2018-09-13] MEDS ORDERED: oxyCODONE 20 mg ER Tab (oxyCONTIN) PO SCH (06:00)
[2018-09-13] MEDS: Insulin Reg-LOW-Coverage SC SCH ×4 (08:49→21:20)
[2018-09-13] MEDS: Cefepime 1gm in NS 100ml 1 GM/100 ML BAG IVPB SCH ×2 (10:17→21:30)
--- NOTE | 2018-09-13 10:19 | CON ---
DATE: 09/13/2018 CONSULT REQUESTED BY: Tito Orozco MD REASON FOR CONSULTATION: Lung mass, brain metastases. HISTORY OF PRESENT ILLNESS: Ms. Price is a 68-year-old female admitted to the hospital with right-sided arm weakness and left leg weakness. The left leg weakness has resolved. She still has right arm weakness. Stroke code was called in the ER, was found to have three lesions in the brain suspicious for metastatic disease. MRI of the brain showed ring-enhancing lesions in the left allyson, left superior parietal and right posterior parietal and occipital lobes with vasogenic edema. CAT scan of the chest without contrast showed right upper lobe mass with mediastinal adenopathy. She has been a heavy smoker. FAMILY HISTORY: Positive family history of lung cancer. Lot of family members had lung cancer. PAST MEDICAL HISTORY: Chronic neck pain and back pain. Hyperlipidemia, COPD, history of TIA in the past, hypertension. ALLERGIES: NO KNOWN DRUG ALLERGIES. HOME MEDICATIONS: Xanax, Neurontin 300 mg p.o. t.i.d., oxycodone 30 mg p.o. b.i.d., Crestor 10 mg daily. REVIEW OF SYSTEMS: Positive for right arm weakness, left leg weakness resolved, difficulty in swallowing, weight loss. Rest of the 12 point of review of system, reviewed and negative. PHYSICAL EXAMINATION: GENERAL: Comfortable in bed, in no acute distress. Thin built. VITAL SIGNS: Temperature 98.8, heart rate 86 per minute, respiratory 17 per minute, blood pressure 130/70, pulse ox 95% on room air. HEENT: Pallor positive. NECK: No lymphadenopathy. CHEST: Air entry present and decreased on the right side. No rhonchi. No crepitations. ABDOMEN: Soft, nontender. EXTREMITIES: No edema. No cyanosis. Right arm weakness present. CENTRAL NERVOUS SYSTEM: Alert, oriented x3. LABORATORY DATA: White count 11,000, hemoglobin 10.6, hematocrit 32.7, and platelets 434. Sodium 141, potassium 3.7, glucose 301, calcium 9.5, phosphorus 3.3, total bilirubin 0.3, AST 44, ALT 17. MEDICATIONS: Reviewed. ASSESSMENT: 1. Right upper lobe lung mass with mediastinal adenopathy suspicious for lung cancer. 2. Lesions in the brain, occipital, parietal, and left allyson suspicious for metastatic disease. 3. Residual right arm weakness likely related to metastatic lesions. 4. Hypertension. 5. Anemia. PLAN: CT-guided lung biopsy is planned for tomorrow. CT abdomen, pelvis ordered to be done stat. She will be a good candidate for gamma knife. I discussed with her if she is willing to go to [place]. We will arrange for gamma knife at [place] after the biopsy. I also discussed the treatment options, which will be chemotherapy for stage IV disease. She agreed for port placement. We will consider port placement with biopsy if possible. We will discuss with Dr. Eliezer Walker. Neurology consultation, Dr. Diaz, requested. We will do the swallow study. She has choking sensation with the food, which has been there for the past few months. Thank you, Dr. Orozco, for allowing us to participate at Ms. Roles' care. Parisa Santos MD
--- NOTE | 2018-09-13 10:50 | CT ---
Date of service: 09/12/2018 PROCEDURE: CT Abdomen and Pelvis with contrast HISTORY: r/o mets COMPARISON: Distant prior multiphasic abdomen MRI 03/11/2013. TECHNIQUE: Following oral and intravenous contrast administration, a CT examination of the abdomen and pelvis was performed from the domes of the diaphragms to the symphysis pubis with reformatted datasets provided not only axial but also sagittal and coronal series. Contrast dose: Omnipaque 350, 100 cc Radiation dose: Total exam DLP = 213.06 mGy-cm. This CT exam was performed using one or more of the following dose reduction techniques: Automated exposure control, adjustment of the mA and/or kV according to patient size, and/or use of iterative reconstruction technique. FINDINGS: LOWER THORAX: Inferomedial portion of large right pulmonary mass and probable postobstructive atelectasis reiterated with lung bases otherwise unremarkable appearing. LIVER: No definitive hepatic mass identified. Upper limits normal intrahepatic biliary duct pattern evident. GALLBLADDER AND BILE DUCTS: Mild to moderate gallbladder distention without radiodense cholelithiasis appreciable. Common bile duct appears upper limits normal caliber 6.5 mm a proximal and mid segments with distal most segment 6 mm caliber. Prominence of the ampulla is suggested and consideration of follow-up MRCP recommended. PANCREAS: Pancreas is atrophic without prominent pancreatic duct dilatation or definite mass identified. SPLEEN: Unremarkable. ADRENALS: There is a 4.6 x 2.5 cm mass related to the right adrenal gland, 63 Hounsfield units density, representing an interval finding compared prior MRI and likely reflective of metastasis. Normal appearing left adrenal gland. KIDNEYS AND URETERS: No obstructive uropathy bilaterally or radiodense urolithiasis. A 1.0 x 0.8 cm lucency seen at the medial midpole right kidney measuring only 48 Hounsfield units in prior chest CT without contrast 09/11/2018 performed about 1 hr after a CTA head and neck. This suspicious for a nodule rather than complex cyst and was not apparent in prior MRI 2012. Left kidney appears unremarkable. VASCULATURE: Nonaneurysmal abdominal aortic calcific atherosclerotic changes are identified. BOWEL: There is a moderate amount retained fecal material scattered throughout the large bowel, predominantly proximally. No bowel obstruction evident. No definitive gross mural thickening or local mesenteric reaction. Limited sigmoid diverticulosis without diverticulitis. Thickening of this segment of bowel is apparent, limited evaluation due to collapse here. Clinically correlate. APPENDIX: Normal appendix. PERITONEUM: Unremarkable. No free fluid. No free air. LYMPH NODES: Unremarkable. No enlarged lymph nodes. BLADDER: Unremarkable. REPRODUCTIVE: Prior hysterectomy or partial hysterectomy suspected. BONES: Minimal anterior wedge compression fracture of L1, age indeterminate. No destructive focal bony lesion appreciated. OTHER FINDINGS: None. IMPRESSION: 1. A 4.2 cm right adrenal mass is suspicious for metastasis. No significant lymphadenopathy in the abdomen or pelvis. 2. Upper limits normal caliber CBD and intrahepatic bile ducts prominent ampulla suggested. Follow-up MRCP advised. 3. 1 cm nodule right kidney pole. 4. Mild sigmoid diverticulosis without definite diverticulitis. Same segment of bowel is collapsed with mural thickening suspected. Clinically correlate further. 5. Inferior extent of mass/atelectasis at right lung reiterated. 6. Other lesser findings as discussed above.
[2018-09-13] MEDS: Azithromycin 500MG/NS 250ml 500 MG/250 ML BAG IVPB SCH (11:17)
--- NOTE | 2018-09-13 15:05 | PN ---
DATE: 09/13/2018 SUBJECTIVE: The patient is a 68-year-old, seen and examined, lying in bed. She states her right upper and lower extremity weakness has significantly improved. She is anxious to go home. PHYSICAL EXAMINATION: GENERAL: She is fully awake, alert, oriented and communicative. VITAL SIGNS: She is afebrile. Pulse 85, respirations 20 and blood pressure 149/79. LUNGS: Bilateral good airflow. No rhonchi or crackle. HEART: S1 and S2, audible. ABDOMEN: Soft and nontender. No rebound. No guarding. NEUROLOGIC: She is awake, alert, able to communicate. She has upper and lower extremities. LABORATORY DATA: Blood sugar is 209. She has CT scan of the abdomen and pelvis done that shows diverticulosis and she has 4.6 x 2.5 cm mass related to the right adrenal gland, probably metastasis. ASSESSMENT: 1. Right upper and lower extremity weakness, probably secondary to the improving by intravenous steroids. 2. Right suprahilar and perihilar mass. 3. Post obstructive pneumonia. 4. History of hypertension. 5. Hyperlipidemia. 6. Active smoker. PLAN: Dr. Santos's input noted and appreciated. We will continue the patient on nebulizer treatment. She is currently on Decadron we will continue that. Monitor her blood sugar. She is on Keppra. She is on steroids. She is getting IV antibiotics. She is scheduled to have CT guided biopsy done tomorrow. Tito Orozco MD
--- NOTE | 2018-09-13 15:07 | CP.PCM.PCO ---
Physician Communication Note - Physician Communication Note Physician Communication Note: Dr. Diaz consulted for neuro. We will sign off; reconsult prn. Thank you
[2018-09-13] MEDS: TAPENTADOL 100 MG PO SCH ×2 (16:58→21:19)
[2018-09-14] MEDS: Dexamethasone 10 MG in Sodium Chloride 0.9% 50 ML IV SCH ×2 (05:42→14:56)
[2018-09-14] MEDS: oxyCODONE 20 mg ER Tab (oxyCONTIN) PO SCH (05:43)
[2018-09-14] MEDS: Insulin Reg-LOW-Coverage SC SCH ×4 (08:46→21:14)
--- NOTE | 2018-09-14 08:54 | CON ---
DATE: 09/13/2018 NEUROLOGY CONSULT CHIEF COMPLAINT: Evaluation for brain metastasis for gamma knife. HISTORY OF PRESENT ILLNESS: Mrs. Price is a 68-year-old woman who is a chronic smoker, history of hyperlipidemia, COPD, and hypertension, who came to the hospital for right-sided weakness, mostly in the arm as well as in the right leg, but it had resolved. She underwent an MRI of the brain, which showed ring enhancing lesions in the left allyson, left superior parietal and right posterior parietal and occipital area with some vasogenic edema indicating brain metastatic disease likely from prior, which is lung cancer since the CAT scan of the chest showed right upper lobe mass and mediastinal adenopathy. She has been a heavy smoker. She would definitely get gamma knife as an outpatient, which has been arranged with Dr. Verdin at [facility] in [place] after her lung biopsy. She still has right upper extremity weakness. Case is discussed with her in detail at bedside. FAMILY HISTORY: Positive for a history of lung cancer; lots of family members had lung cancer. PAST MEDICAL HISTORY: Chronic neck and back pain, hyperlipidemia, COPD, hypertension. ALLERGIES: NO KNOWN DRUG ALLERGIES. HOME MEDICATIONS: Reviewed by nurse reconciliation sheet. REVIEW OF SYSTEMS: A 14-point review of systems negative except in the HPI. PHYSICAL EXAMINATION GENERAL: The patient is sitting up in bed, in no acute distress. VITAL SIGNS: Temperature 97.8, pulse rate of 85, blood pressure 149/79, respiratory rate 20, oxygen saturation of 95% on room air. HEENT: Head is atraumatic, normocephalic. PERRLA. Extraocular movements intact. NECK: Supple. No JVD. No adenopathy noted. LUNGS: Clear to auscultation. No adventitious sounds. HEART: S1 and S2. Normal rate and rhythm. No murmurs, rubs, or gallops. ABDOMEN: Soft, nontender, and nondistended. Bowel sounds are present. EXTREMITIES: No clubbing. No cyanosis. Peripheral pulses are 2+ bilaterally. NEURO: The patient is alert, oriented to person, place, month, and year. Speech is fluent without any errors. Cranial nerves II through XII are intact. Motor exam; there is right upper extremity weakness, 4/5 and 5-/5 right lower extremity weakness. Toes are upgoing bilaterally, left side is intact. DTRs are 2+ throughout. Coordination; [id number] intact. No dysmetria noted except for her difficulty to do [id number] of the right arm due to right-sided weakness from underlying metastasis. Gait is deferred for now. IMPRESSION: Right upper lung mass with mediastinal adenopathy, likely this is due to lung cancer with metastatic lesions at the left allyson, left superior parietal and right posterior parietal occipital lobes with vasogenic edema. PLAN: Currently we will recommend; 1. Gamma-knife procedure as an outpatient with Dr. Jimi Verdin at [facility] in [place] after she has received a lung biopsy. 2. Continue with Keppra 500 mg p.o. b.i.d. for seizure prophylaxis. 3. Dexamethasone IV every 8 hours of 10 mg for her vasogenic edema, tapering Medrol-Dosepak as an outpatient. 4. Continue with her current dose of gabapentin and nortriptyline for underlying chronic neck pain and radiculopathy. 5. Followup with Oncology in regards to her metastatic cancer. Thank you for this consult. Adla Diaz MD
[2018-09-14] MEDS: Cefepime 1gm in NS 100ml 1 GM/100 ML BAG IVPB SCH ×2 (09:03→21:13)
[2018-09-14] MEDS: Azithromycin 500MG/NS 250ml 500 MG/250 ML BAG IVPB SCH (09:04)
[2018-09-14] MEDS ORDERED: Midazolam 2 MG/2 ML VIAL ONE (12:17)
[2018-09-14] MEDS ORDERED: Lidocaine 1% Inj (20ml) ONE (12:17)
[2018-09-14] MEDS ORDERED: Midazolam 2 MG/2 ML VIAL IVP ONE (12:35)
[2018-09-14] MEDS ORDERED: Sodium Chloride 0.45% 1,000 ML IV SCH (13:00)
[2018-09-14 14:03] VITALS: RESP 20; O2SAT 96
[2018-09-14] MEDS ORDERED: Dexamethasone 4 mg/1 ml ONE (14:29)
[2018-09-14 14:34] VITALS: PULSE 53
--- NOTE | 2018-09-14 15:40 | RAD ---
Date of service: 09/14/2018 HISTORY: rt lung BX Relevant interventional procedure(s): September 14, 2018 CT-guided lung biopsy. COMPARISON: 09/11/2018. Single-view chest. 09/11/2018 CT thorax. FINDINGS: LUNGS: Stable findings right lower lobe. PLEURA: Tiny right apical pneumothorax. The finding is marked on the study for review. CARDIOVASCULAR: No atherosclerotic calcification present Normal. OSSEOUS STRUCTURES: No significant abnormalities. VISUALIZED UPPER ABDOMEN: Normal. OTHER FINDINGS: None. IMPRESSION: Tiny postprocedural right pneumothorax Otherwise, no interval change.
--- NOTE | 2018-09-14 16:23 | PN ---
DATE: 09/14/2018 SUBJECTIVE: The patient is 68-year-old, seen and examined. No chest pain, no shortness of breath. No nausea or vomiting. No diarrhea. Her right leg weakness has almost 100% improved. She still have right upper extremity weakness. PHYSICAL EXAMINATION VITAL SIGNS: She is afebrile. Pulse 70, respirations 20 and blood pressure 153/73. LUNGS: Bilateral fair airflow. No rhonchi or crackle. HEART: S1 and S2 audible. ABDOMEN: Soft and nontender. No rebound, no guarding. NEUROLOGIC: The patient is awake, alert, oriented, able to communicate. EXTREMITIES: She has right upper extremity weakness. Right lower extremity almost 5/5. LABORATORY DATA: Blood sugars 155. ASSESSMENT: 1. Status post right upper and lower extremity weakness. 2. Metastatic lesion in left allyson and left superior parietal and right posterior parietal occipital lobes surrounded by vasogenic edema. 3. Suprahilar lung mass. 4. Renal mass. 5. Chronic degenerative disc disease. PLAN: Currently, the patient is on dexamethasone every 8 hours. The patient is on Nucynta. She is getting Keppra. She is on statins. She is getting cefepime, Zithromax. She is scheduled to have CT-guided biopsy, lung biopsy done today. We will monitor her closely. If she remains stable will discharge tomorrow. She is scheduled to have gamma knife radiation to the brain . Tito Orozco MD
[2018-09-14] MEDS: TAPENTADOL 100 MG PO SCH (17:32)
[2018-09-14] MEDS ORDERED: Tmp-Smz 800 mg-160 mg DS Tab PO ONE (18:00)
[2018-09-14] MEDS ORDERED: Tmp-Smz 800 mg-160 mg DS Tab PO SCH (18:00)
--- NOTE | 2018-09-14 20:48 | CT ---
PROCEDURE: CT guided right lung biopsy. HISTORY: 5 cm right hilar mass with metastatic disease. Previous smoker. Evaluate for lung carcinoma PHYSICIAN(S): Eliezer Walker MD. TECHNIQUE: The relative risks and indications of the procedure were explained to the patient and consent obtained. The patient was placed supine on the CT scanner and preliminary images through the mid lungs obtained. Conscious sedation and monitoring were provided throughout the procedure by a nurse. There is a 5 cm mass in the right hilum involving primarily the right middle lobe. A right anterior approach was selected and the area prepped and draped in the usual sterile fashion. 1% Xylocaine was used to anesthetize the skin and soft tissues. A 18 gauge guiding needle was advanced into the 5 cm right hilar mass. Its position was confirmed with CT. Using coaxial technique, multiple core biopsies were obtained. The postprocedure images show no evidence of large pneumothorax or significant hemorrhage. A tiny pneumothorax was present. The patient was asymptomatic. Chest x-ray was ordered. IMPRESSION: 1. CT-guided right lung biopsy as described above.
[2018-09-14] MEDS ORDERED: TAPENTADOL 100 MG PO SCH (21:26)
[2018-09-15] MEDS ORDERED: Pantoprazole 40 mg EC Tab PO SCH (06:00)
[2018-09-15] MEDS: oxyCODONE 20 mg ER Tab (oxyCONTIN) PO SCH (06:20)
[2018-09-15] MEDS: Insulin Reg-LOW-Coverage SC SCH (08:57)
[2018-09-15] MEDS ORDERED: Tmp-Smz 800 mg-160 mg DS Tab PO SCH (10:00)
[2018-09-15] MEDS: Cefepime 1gm in NS 100ml 1 GM/100 ML BAG IVPB SCH (10:04)
[2018-09-15] MEDS: Azithromycin 500MG/NS 250ml 500 MG/250 ML BAG IVPB SCH (10:04)
[2018-09-15 12:04] VITALS: BP 139/70; TEMP 97.4
--- NOTE | 2018-09-15 15:33 | DS ---
HISTORY OF PRESENT ILLNESS: The patient is a 68-year-old, who was admitted with left-sided weakness, upper more than the lower extremity. She had CT scan of the brain done that revealed in the left palm, so she underwent MRI that also confirmed that. However, CT scan of the chest showed she had right suprahilar mass along with perihilar lymphadenopathy, right hemiparesis, bone mets the , severe vasogenic edema, history of cervical degenerative disc disease, so the patient was admitted and started on IV steroids with significant improvement in her weakness. She was found to have post obstructive pneumonia and she has been on IV antibiotic, nebulizer treatment, doing very well. PHYSICAL EXAMINATION: GENERAL: She is awake, alert, oriented, anxious to go home, no chest pain or shortness of breath. VITAL SIGNS: She is afebrile, pulse 53, respirations are 20, blood pressure 173/78. LUNGS: Bilateral fair airflow. No rhonchi or crackle. HEART: S1 and S2 audible. ABDOMEN: Soft, nontender. No rebound. No guarding. NEUROLOGIC: The patient is awake and alert, able to communicate. LABORATORY DATA: Blood sugar is 110. ASSESSMENT: 1. Right hilar mass. 2. Left one time met with vasogenic edema. 3. Cervical degenerative disc disease. 4. Adrenal mass. PLAN: The patient is being discharged home today. She will be on Decadron 4 mg twice a day. She is on Bactrim DS one tablet twice a day. She will be discharge home on Keppra, Lipitor. We will discontinue her IV antibiotics. She will resume her pain medication regimen as she was getting at home. She will resume her . She is schedule to have gamma knife radiation to the brain and after that she will follow with Dr. Santos, for further management. Tito Orozco MD
== END 2018-09-15 14:04 | disposition home or self-care (01) | DRG 180 ==
LOC: ED 10:33 → ERH 12:51 → 2RNO 14:53 → 3RNO 09-12 19:13
PROVIDERS: ADMIT Internal Medicine; ATTEND Internal Medicine
PROC: BB27ZZZ Computerized Tomography (CT Scan) of Right Tracheobronchial Tree (ICD-10-PCS; 2018-09-14)
PROC: 0BBC3ZX Excision of Right Upper Lung Lobe, Percutaneous Approach, Diagnostic (ICD-10-PCS; principal; 2018-09-14 11:30)
DX: C34.01 Malignant neoplasm of right main bronchus (principal); G93.6 Cerebral edema; J18.9 Pneumonia, unspecified organism; C79.31 Secondary malignant neoplasm of brain; C79.51 Secondary malignant neoplasm of bone; G81.91 Hemiplegia, unspecified affecting right dominant side; J44.0 Chronic obstructive pulmonary disease with (acute) lower respiratory infection; D64.9 Anemia, unspecified; E27.9 Disorder of adrenal gland, unspecified; E78.5 Hyperlipidemia, unspecified; F17.210 Nicotine dependence, cigarettes, uncomplicated; G89.29 Other chronic pain; I10 Essential (primary) hypertension; M50.30 Other cervical disc degeneration, unspecified cervical region; N28.89 Other specified disorders of kidney and ureter; Z79.899 Other long term (current) drug therapy; Z80.1 Family history of malignant neoplasm of trachea, bronchus and lung; Z86.73 Personal history of transient ischemic attack (TIA), and cerebral infarction without residual deficits

== ENCOUNTER 2018-09-21 06:32 | Day surgery (SDC) | payer MEDICARE ==
[2018-09-19 11:18] VITALS: BMI 18.9
[2018-09-21 07:06] LABS: BASO # 0.01 K/mm3 (0.0-2.0); BASO % 0.1 % (0.0-3.0); EOS # 0.3 (0.0-0.7); EOS % 1.8 % (1.5-5.0); HEMOGLOBIN 11.7 g/dL (12.0-16.0); LYMPH # 2.4 (1.2-3.4); LYMPH % 15.4 % (22.0-35.0); MEAN CELL VOLUME 96.3 fl (80.0-105.0); MEAN CORPUSCULAR HEMOGLOBIN 30.6 pg (25.0-35.0); MEAN CORPUSCULAR HGB CONC 31.8 g/dl (31.0-37.0); MEAN PLATELET VOLUME 8.2 fl (7.0-11.0); MONO % 6.5 % (1.0-6.0); RBC 3.82 10^6/uL (3.5-6.1); RED CELL DISTRIBUTION WIDTH 13.9 % (11.5-14.5); WHITE BLOOD COUNT 15.3 10^3/uL (4.5-11.0)
[2018-09-21 07:18] LABS: INR 1.06; PARTIAL THROMBOPLASTIN TIME 26.2 Seconds (26.9-38.3)
[2018-09-21] MEDS ORDERED: Lidocaine PF 2% (5 ml) Inj (For Cardiac Arrhy) ONE ×2 (07:23→08:36)
[2018-09-21 07:24] LABS: BLOOD UREA NITROGEN 20 mg/dL (7-21); CALCIUM 9.5 mg/dL (8.4-10.5); GFR NON-AFRICAN AMERICAN > 60
[2018-09-21] MEDS ORDERED: Midazolam 2 MG/2 ML VIAL ONE ×2 (08:49→08:53)
[2018-09-21] MEDS ORDERED: Sodium Chloride 0.45% 1,000 ML IV SCH (09:45)
[2018-09-21 10:19] VITALS: RESP 18; TEMP 97.9
[2018-09-21 11:19] VITALS: BP 113/57; PULSE 84; O2SAT 93
--- NOTE | 2018-09-21 17:18 | VASCULAR ---
PROCEDURE: Ultrasound and fluoroscopic right internal jugular venous access port. CLINICAL HISTORY: Lung carcinoma.Venous port for chemotherapy. PHYSICIAN(S): Eliezer Walker M.D. TECHNIQUE: The relative risks and indications of the procedure were explained to the patient and consent obtained. The patient was placed supine on the arteriogram table and the right neck and chest prepped and draped in the usual sterile fashion. Conscious sedation monitoring was provided throughout the procedure by a nurse. Antibiotics were given prior to the procedure. Under direct ultrasound guidance, the right internal jugular vein was punctured with a micro-puncture set. A 0.035 angled Glidewire was advanced into the IVC. A 4 cm incision was made below the right clavicle and the pocket blunted dissected. A 8 Tajik single-lumen catheter, 22 cm long, was advanced to the SVC/RA junction. The catheter was trimmed and attached to the port. The port aspirates and injects easily. The port was placed in the pocket and closed in 2 layers. The patient tolerated the procedure well. IMPRESSION: Ultrasound and fluoroscopically placed right internal jugular venous access port.
== END 2018-09-21 11:55 | disposition home or self-care (01) ==
LOC: SDS 06:32
PROVIDERS: ATTEND Radiology Vascular & Interventional Radiology
DX: C34.90 Malignant neoplasm of unspecified part of unspecified bronchus or lung (principal); J44.9 Chronic obstructive pulmonary disease, unspecified
CPT/HCPCS: 36415; 36561; 76937; 77001; 80048; 85025; 85610; 85730; 99152; C1769; C1788; J0690; J1644; J2250; J2405; J3010; J7030

== ENCOUNTER 2018-10-23 13:04 | Inpatient (IN) | payer MEDICARE ==
[2018-10-23 13:09] VITALS: BMI 18.3
[2018-10-23] MEDS ORDERED: cefTRIAXone 1 gm 1 GM/100 ML BAG IVPB STA (13:24)
[2018-10-23] MEDS ORDERED: Fluconazole IV 400mg/200ml NS 200 ML IVPB STA (13:24)
--- NOTE | 2018-10-23 13:32 | ED PDOC ---
Arrival/HPI - General Chief Complaint: Dizziness/Lightheaded Time Seen by Provider: 10/23/18 13:11 Historian: Patient - History of Present Illness Narrative History of Present Illness (Text): 10/23/18 13:25 A 68 year old female, whose past medical history includes lung CA with metastasis to the brain, metastatic lung CA s/p gamma knife treatment, presents to the emergency department today after being advised by her PMD to get evaluated. Patient complains of of headache, generalized weakness, dysphia. Patient has been feeling weak and with a headache for the past few days. She complains of reported dysphasia a few days ago. Patient sent by PMD for evaluation for suspicion of esophagitis. She denies fevers, chills, dizziness, chest pain, shortness of breath, dyspnea on exertion, cough, abdominal pain, nausea, vomiting, diarrhea, back pain, neck pain, urinary/bowel changes, or any other complaint. PMD: Dr. Santos Symptom Course: Worsening Activities at Onset: Rest, Light Context: Home Past Medical History - Provider Review Nursing Documentation Reviewed: Yes - Infectious Disease Hx of Infectious Diseases: None - Reproductive Menopause: Yes - Cardiac Hx Pacemaker: No - Pulmonary Hx Respiratory Disorders: Yes Hx Chronic Obstructive Pulmonary Disease (COPD): Yes Other/Comment: chest cancer and brain cancer on chemo. last chemo last week - Neurological Hx Paralysis: No - HEENT Hx HEENT Disorder: No - Renal Hx Renal Disorder: No - Endocrine/Metabolic Hx Endocrine Disorders: No - Hematological/Oncological Hx Blood Transfusions: No - Integumentary Hx Dermatological Disorder: No - Musculoskeletal/Rheumatological Hx Musculoskeletal Disorders: Yes - Gastrointestinal Hx Gastrointestinal Disorders: No - Genitourinary/Gynecological Hx Genitourinary Disorders: No - Psychiatric Hx Emotional Abuse: No Hx Physical Abuse: No Hx Substance Use: No - Anesthesia Hx Anesthesia Reactions: No Hx Malignant Hyperthermia: No - Suicidal Assessment Feels Threatened In Home Enviroment: No Family/Social History - Physician Review Nursing Documentation Reviewed: Yes Family/Social History: No Known Family HX Smoking Status: Former Smoker Hx Alcohol Use: Yes (SOCIAL WINE) Hx Substance Use: No Allergies/Home Meds Allergies/Adverse Reactions: Allergies No Known Allergies Allergy (Verified 09/11/18 14:07) Home Medications: Home Meds Medication Instructions Recorded Confirmed Gabapentin [Neurontin] 300 mg PO TID 04/26/18 10/23/18 Rosuvastatin Calcium [Crestor] 10 mg PO DAILY 04/26/18 10/23/18 Nortriptyline [Pamelor] 10 mg PO HS 09/11/18 10/23/18 oxyCODONE [oxyCONTIN Extended 40 mg PO DAILY 09/12/18 10/23/18 Release Tab] Aspirin [Ecotrin] 81 mg PO DAILY 09/19/18 10/23/18 Pantoprazole [Protonix] 40 mg PO DAILY 09/19/18 10/23/18 Review of Systems - Physician Review All systems were reviewed & negative as marked: Yes - Review of Systems Constitutional: Other (Weakness). absent: Fevers Respiratory: absent: SOB, Cough Cardiovascular: absent: Chest Pain, EDWARDS Gastrointestinal: absent: Abdominal Pain, Stool Changes, Diarrhea, Nausea, Vomiting Genitourinary Female: absent: Urine Output Changes Musculoskeletal: absent: Back Pain, Neck Pain Neurological: Headache. absent: Dizziness Physical Exam Vital Signs Reviewed: Yes Vital Signs Temp Pulse Resp BP Pulse Ox 10/23/18 13:04 99.6 F 96 H 18 107/64 95 Temperature: Afebrile Blood Pressure: Normal Pulse: Regular Respiratory Rate: Normal Appearance: Positive for: Well-Appearing, Non-Toxic, Comfortable Pain Distress: None Mental Status: Positive for: Alert and Oriented X 3 - Systems Exam Head: Present: Atraumatic, Normocephalic Pupils: Present: PERRL Extroacular Muscles: Present: EOMI Conjunctiva: Present: Normal Mouth: Present: Moist Mucous Membranes Pharnyx: Present: ERYTHEMA Neck: Present: Normal Range of Motion Respiratory/Chest: Present: Clear to Auscultation, Good Air Exchange. No: Respiratory Distress, Accessory Muscle Use Cardiovascular: Present: Regular Rate and Rhythm, Normal S1, S2. No: Murmurs Abdomen: No: Tenderness, Distention, Peritoneal Signs Back: Present: Normal Inspection Upper Extremity: Present: Normal Inspection. No: Cyanosis, Edema Lower Extremity: Present: Normal Inspection. No: Edema Neurological: Present: GCS=15, CN II-XII Intact, Speech Normal Skin: Present: Warm, Dry, Normal Color. No: Rashes Psychiatric: Present: Alert, Oriented x 3, Normal Insight, Normal Concentration Medical Decision Making ED Course and Treatment: 10/23/18 13:33 Impression: A 68 year old female presents to the emergency department for a complaint of several day duration headache, generalized weakness, and reported dysphasia. suspect mets Plan: -- Head CT -- Blood Culture -- Labs -- Rocephin and Diflucan -- Reassess and disposition Prior Visits: Notes and results from previous visits were reviewed. Progress Notes: 10/23/18 14:37: Case discussed in detail with Dr. Orozco who accepts patient to her service. PROCEDURE: CT HEAD WITHOUT CONTRAST. Dictator : Erasmo Fairbanks MD Report Date : 10/23/2018 14:24:06 IMPRESSION: Limited metastasis reiterated at the left allyson and left frontal parietal vertex though the left vertex finding is only apparent by local edema and not specifically the lesion itself. No significant mass effect or suspicious extra-axial fluid collection. Better follow-up of metastasis can provided by MRI without contrast if clinically warranted. 10/23/18 18:24 ekg nsr [address] changes 10/23/18 18:35 labs imaging dicsused with dr orozco adn dr santos request steriods. accepted. 10/23/18 18:36 need tele for neuro check - RAD Interpretation Radiology Orders: 10/23/18 13:23 HEAD W/O CONTRAST [CT] Stat Disposition/Present on Arrival - Present on Arrival Any Indicators Present on Arrival: No History of DVT/PE: No History of Uncontrolled Diabetes: No Urinary Catheter: No History of Decub. Ulcer: No History Surgical Site Infection Following: None - Disposition Have Diagnosis and Disposition been Completed?: Yes Diagnosis: Brain metastasis, Dysphagia Disposition: HOSPITALIZED Disposition Time: 18:00 Condition: STABLE
[2018-10-23 14:04] LABS: BASO # 0.01 K/mm3 (0.0-2.0); BASO % 0.2 % (0.0-3.0); EOS # 0.2 (0.0-0.7); EOS % 2.9 % (1.5-5.0); HEMOGLOBIN 9.3 g/dL (12.0-16.0); LYMPH # 0.9 (1.2-3.4); MEAN CELL VOLUME 98.7 fl (80.0-105.0); MEAN CORPUSCULAR HEMOGLOBIN 31.2 pg (25.0-35.0); MEAN CORPUSCULAR HGB CONC 31.6 g/dl (31.0-37.0); MEAN PLATELET VOLUME 8.3 fl (7.0-11.0); MONO # 0.3 (0.1-0.6); MONO % 4.9 % (1.0-6.0); RBC 2.98 10^6/uL (3.5-6.1); RED CELL DISTRIBUTION WIDTH 15.9 % (11.5-14.5); WHITE BLOOD COUNT 6.5 10^3/uL (4.5-11.0)
[2018-10-23 14:15] LABS: ALB/GLOB RATIO 1.2 (1.1-1.8); ALBUMIN 3.3 g/dL (3.0-4.8); ALT/SGPT 27 U/L (7-56); AST/SGOT 27 U/L (14-36); BLOOD UREA NITROGEN 15 mg/dL (7-21); CALCIUM 8.5 mg/dL (8.4-10.5); GFR NON-AFRICAN AMERICAN > 60
[2018-10-23 14:17] LABS: INR 1.11; PARTIAL THROMBOPLASTIN TIME 25.4 Seconds (26.9-38.3); PROTHROMBIN TIME 12.3 SECONDS (9.4-12.5)
--- NOTE | 2018-10-23 14:27 | CT ---
Date of service: 10/23/2018 PROCEDURE: CT HEAD WITHOUT CONTRAST. HISTORY: metastatic lung ca/[place] COMPARISON: Brain MRI with and without contrast 09/11/2018. TECHNIQUE: Axial computed tomography images were obtained through the head/brain without intravenous contrast. Radiation dose: Total exam DLP = 955.51 mGy-cm. This CT exam was performed using one or more of the following dose reduction techniques: Automated exposure control, adjustment of the mA and/or kV according to patient size, and/or use of iterative reconstruction technique. FINDINGS: HEMORRHAGE: No intracranial hemorrhage. BRAIN: Minimal chronic microangiopathy is reiterated. Overall volume of the brain remains within normal limits with no suspicious extra-axial fluid collection appreciated. A small lucency is seen at the left side of the upper allyson measuring 1.3 x 1.2 cm corresponding to prior ring-enhancing lesion at same location in brain MRI 09/11/2018, not significantly changed in size. Superior left frontal parietal lesion is not clearly identified, specifically, although edema is identified in the same location, not dramatically increased in the interval. No definitive new edema pattern appreciable. VENTRICLES: Unremarkable. No hydrocephalus. CALVARIUM: Unremarkable. PARANASAL SINUSES: Unremarkable as visualized. No significant inflammatory changes. MASTOID AIR CELLS: Unremarkable as visualized. No inflammatory changes. OTHER FINDINGS: None. IMPRESSION: Limited metastasis reiterated at the left allyson and left frontal parietal vertex though the left vertex finding is only apparent by local edema and not specifically the lesion itself. No significant mass effect or suspicious extra-axial fluid collection. Better follow-up of metastasis can provided by MRI without contrast if clinically warranted.
[2018-10-23] MEDS ORDERED: Oxycodone/Acetaminophen 5/325 mg Tab PO PRN (15:42)
[2018-10-23] MEDS ORDERED: MethylPREDNISolone 40 mg Vial IVP STA (15:45)
[2018-10-23] MEDS ORDERED: Pantoprazole 40 mg EC Tab PO SCH (15:45)
[2018-10-23] MEDS ORDERED: Magnesium Sulfate 1 gm in D5W 1 GM/100 ML BAG IVPB ONE (17:10)
[2018-10-23] MEDS ORDERED: Dexamethasone 4 mg/1 ml IVP STA (17:10)
[2018-10-23] MEDS ORDERED: HYDROmorphone 1 mg/ml ISec IVP PRN (18:48)
--- NOTE | 2018-10-23 18:56 | CON ---
DATE: 10/23/2018 NEUROLOGY CONSULTATION CHIEF COMPLAINT: Headache with history of metastatic cancer to the brain. HISTORY OF PRESENT ILLNESS: This is a 68-year-old woman with past medical history of recently diagnosed right upper lung mass cancer with mediastinal adenopathy status post metastasis to the brain in the left allyson, left superior parietal and right posterior parietal occipital lobe with history of vasogenic edema in the past status post gamma knife treatment at [facility], came in here by her PMD for headache, generalized weakness, diffuse pressure type without any auras. She says she has been feeling weak for the past few days and headache has been pounding. No focal weakness of lower extremities except for being slightly cachectic. She is on Pamelor 10 mg p.o. at bedtime and Neurontin 300 mg t.i.d. for her headache. She is also getting Percocet p.r.n. for also the pain. She moves all extremities and is mildly deconditioned. CAT scan of the head was done which showed overall volume of brain remains within normal limits, a very small lucency seen in the left side of the upper allyson measuring 1.2 x 1.2 cm corresponding to prior enhancing lesion at the same location from MRI of the brain on 09/11/2018. No significant change in size. There is a superior left frontal parietal lesion that is not clearly identified, especially there is mild edema which is likely related to underlying gamma knife procedure. PAST MEDICAL HISTORY: As above. SOCIAL HISTORY: She was a daily smoker for many years. No illicit drug use or EtOH abuse. ALLERGIES: NO KNOWN DRUG ALLERGIES. REVIEW OF SYSTEMS: A 14-point review of systems is negative except as per the HPI. MEDICATIONS: Reviewed by nurses' reconciliation sheet. LABORATORY DATA: Sodium is 134, potassium 3.9, chloride 115, BUN of 15, creatinine 4.5, and random glucose 94. PHYSICAL EXAMINATION GENERAL: The patient is seen up in bed, in no acute distress. VITAL SIGNS: Temperature 99.6, pulse rate of 94, blood pressure 107/66, respiratory rate 16 and oxygen saturation 95% on room air. HEENT: Atraumatic and normocephalic. PERRLA. Extraocular muscles are intact. NECK: Supple. No JVD. No adenopathy noted. LUNGS: Clear to auscultation. No adventitious sounds. HEART: S1 and S2. Normal rate and rhythm. No murmurs, rubs or gallops. ABDOMEN: Soft, nontender and nondistended. Bowel sounds are present. EXTREMITIES: No clubbing. No cyanosis. Peripheral pulses 2+ felt bilaterally. NEUROLOGIC: The patient is alert and oriented to person, place, month, and year. Speech is fluent without any errors. Cranial nerves II through XII are intact. Motor exam; moves all extremities equally except for subtle some right-sided upper extremity weakness 5-/5 when compared to left, corresponding to underlying metastasis in the brain. Toes are upgoing bilaterally. Coordination; [id number] intact. No dysmetria noted. Gait is deferred for now. IMPRESSION: Right upper lung mass with mediastinal adenopathy with metastatic cancer to the brain, especially last lesions were metastatic in the left allyson, left superior parietal and right posterior parietal occipital lobes surrounded by vasogenic edema status post using gamma knife intervention. She just came in for her generalized weakness, cachectic, failure to thrive as well as diffuse pressure headaches. Now a repeat CAT scan shows limited metastasis reiterated at the left allyson and left frontal periatrial area with left vertex finding only apparently with local edema and lesser significant lesion itself and is much better than her prior MRI, which she recently had which is likely results of the gamma knife. In regards to her headache, which is diffusely pressure type from the underlying metastasis. We will recommend to continue with her Neurontin 300 mg p.o. t.i.d., and we will increase her Pamelor to 25 mg at bedtime and we will give her one dose of dexamethasone 4 mg for headache prevention. Continue with oncology followup. Thank you for this consult. dAal Diaz MD
[2018-10-23] MEDS: Dexamethasone 4 mg/1 ml IVP SCH (19:12)
[2018-10-23] MEDS: Dextrose 5%/0.45% NS 1,000 ML IV SCH (19:27)
--- NOTE | 2018-10-24 00:28 | HP ---
DATE OF EXAM: 10/23/2018 HISTORY OF PRESENT ILLNESS: The patient is a 68 years old, known to me from previous admission, came to emergency room because of headache, complaint of generalized weakness, also has decreased appetite because of difficulty swallowing. The patient was seen by Dr. Santos who advised her to go to emergency room to rule out esophagitis. No history of fever or chills. No history of nausea or vomiting. Has generalized weakness, poor appetite. No shortness of breath. Complained of headache. No fever or chills. PAST MEDICAL HISTORY: Significant for; 1. Chronic degenerative disc disease. 2. Recent left hemiparesis. 3. Recently she was admitted and she was found to have right suprahilar mass with perihilar lymphadenopathy, had biopsy done that showed adenocarcinoma of the lung. The patient was referred to [facility] for gamma knife radiation that she underwent. She states she was doing fine, but in the last few days her headache has been severe. 4. She also has past medical history significant for adrenal mass. 5. Cervical degenerative disc disease. ALLERGIES: NO ALLERGIC TO ANY MEDICATION. MEDICATIONS AT HOME: She is on Valtrex 500 mg daily, oxycodone 40 mg twice a day, Keppra 500 mg twice a day, Crestor 10 mg daily, Protonix 40 daily, amitriptyline 10 mg at bedtime, gabapentin 300 mg three times a day, aspirin 81 daily. SOCIAL HISTORY: She is , lives with her . She used to be a smoker. PHYSICAL EXAMINATION GENERAL: Looks weak, lost weight. Her height is 5 feet and 5 inches, weight is 110 pounds. She looks pale. VITAL SIGNS: Temperature 99.6, pulse 93, respirations 18, blood pressure 115/61. HEENT: She has symmetrical face. Nonicteric sclera. Pale conjunctivae. LUNGS: Bilateral fair airflow. No rhonchi or crackle. HEART: S1, S2 audible. ABDOMEN: Soft, nontender. No rebound. No guarding. NEUROLOGIC: She is awake and alert. Able to communicate. LABORATORY DATA: WBC 6.5, hemoglobin 9.3, hematocrit 29.4, platelet 184. Chemistry; sodium 134, potassium 3.9, chloride 99, CO2 of 29, BUN 15, creatinine 0.5, blood sugar 194. ASSESSMENT: 1. Intractable headache. 2. Lung cancer with brain metastasis. 3. Dysphagia, rule out esophagitis. 4. Left allyson and left frontal parietal vertex metastasis with edema. PLAN: We will start the patient on clear liquid, give her IV fluid. Start her on pureed food. Start her on IV fluids. Dr. Dumont for consult. Dr. Adal Diaz for Neurology and Dr. Santos to manage her from oncology point of view. I will start her on Diflucan, start her on Decadron, and start her on analgesic. We will follow up in a.m. Tito Orozco MD
[2018-10-24] MEDS: Dexamethasone 4 mg/1 ml IVP SCH ×2 (02:40→10:27)
[2018-10-24 06:04] VITALS: PULSE 88
[2018-10-24 06:40] VITALS: BP 122/76; RESP 20; TEMP 98.4; O2SAT 94
[2018-10-24] MEDS ORDERED: Gadodiamide 287 MG/ML VIAL (15ML) IV ONE (08:51)
[2018-10-24] MEDS: Dextrose 5%/0.45% NS 1,000 ML IV SCH (09:39)
[2018-10-24] MEDS ORDERED: Fluconazole IV 200mg/100 ml NS 100 MG in Premixed IV 1 EA IVPB SCH (10:00)
--- NOTE | 2018-10-24 11:32 | MRI ---
Date of service: 10/24/2018 PROCEDURE: MRI BRAIN WITH AND WITHOUT CONTRAST HISTORY: Newly diagnosed Brain with mets COMPARISON: 09/11/2018 TECHNIQUE: Multiplanar, multisequence MR images of the brain were obtained with and without intravenous contrast enhancement. 15 cc of Omniscan FINDINGS: HEMORRHAGE: None DWI: No evidence of an acute or early subacute infarction. BRAIN PARENCHYMA: No mass,mass effect or edema. No atrophy or chronic microvascular ischemic changes. ENHANCEMENT: There is an enhancing lesion in the allyson that has increased in size now measuring 19 mm in height 13.8 mm in diameter previously measuring 15 x 11 mm. There is a decrease in the amount of vasogenic edema surrounding this lesion. Previously there was a lesion in the left posterior frontal convexity measuring 9 mm. There was a moderate amount of surrounding edema. This lesion now measures 5 mm in diameter and the edema has resolved. On the previous study a 3rd lesion could be seen in the right parietal lobe which measured 8 mm in diameter. This lesion is no longer seen. VENTRICLES: Unremarkable. No hydrocephalus. CRANIUM: Unremarkable. ORBITS: Grossly unremarkable. PARANASAL SINUSES/MASTOIDS: Clear VASCULAR SYSTEM: Skull base flow voids intact. OTHER FINDINGS: None . IMPRESSION: Decreased size of left posterior frontal and right parietal lesions and resolution of surrounding edema. Increased size of left-sided pontine lesion.
--- NOTE | 2018-10-24 14:08 | PN ---
DATE: 10/24/2018 SUBJECTIVE: The patient is a 68-year-old, seen and examined. She states headache is better. Denies any chest pain. Complains of neck pain. She states since she has neck surgery done, she has intermittent difficulty swallowing. Otherwise, she is better. Complains of shortness of breath, especially when she lays down. PHYSICAL EXAMINATION: VITAL SIGNS: She is afebrile. Pulse 80, respirations 20, blood pressure 122/76. LUNGS: Bilateral fair airflow. No rhonchi or crackle. HEART: S1 and S2 audible. ABDOMEN: Soft and nontender. No rebound. No guarding. NEUROLOGICALLY: She is awake and alert. Able to communicate. Nonfocal. No motor sensory deficits. LABORATORY DATA: There is no new lab available today. She had MRI of the brain done that shows decrease size of left posterior frontal and left parietal lesion and resolution of surrounding edema, increase in size of left-sided pontine lesion. ASSESSMENT: 1. Cancer of the lung with brain metastasis. 2. Headache seems to be improving since started on steroid. 3. Right upper lung mass with mediastinal adenopathy. 4. Status post gamma knife procedure. 5. Dysphagia, etiology unclear if mechanical or because of thrush; however, she does not have oral thrush. 6. Chronic anemia. 7. Degenerative disc disease. PLAN: Currently, the patient is on her maintenance medications. We will continue her on Decadron, continue her on IV fluids and fluconazole. We will discuss with other consultants and make disposition plan, start her on physical therapy. Tito Orozco MD
--- NOTE | 2018-10-24 15:11 | CON ---
DATE: 10/24/2018 CONSULT REQUESTED BY: Dr. Orozco. REASON FOR CONSULTATION: Lung cancer and brain metastasis. HISTORY OF PRESENT ILLNESS: Ms. Price is a 68-year-old female well known to me from the office. She presented to office yesterday with increased headaches on posterior side of the head, gait disturbance and not feeling well. She was referred to the ER from the office. Recently, she had gamma knife treatment to 2 of the 3 lesions, 1 lesion in pontine is scheduled to be treated next month. She also had oral thrush and erythema in the throat. No fever. No cough with expectoration. She has been on steroids for past few weeks. PAST MEDICAL HISTORY: COPD, lung cancer, metastasis to the brain. PAST SURGICAL HISTORY: Biopsy of the lung. FAMILY HISTORY: No positive family history of cancer. SOCIAL HISTORY: Former smoker. No history of alcohol abuse. ALLERGIES: NO KNOWN DRUG ALLERGIES. HOME MEDICATIONS: Gabapentin, Crestor, nortriptyline, oxycodone, aspirin and Protonix. REVIEW OF SYSTEMS: As per HPI. Rest of 12-point review of systems reviewed and negative. PHYSICAL EXAMINATION: GENERAL: Comfortable in bed, in no acute distress. VITAL SIGNS: Temperature 98.4, heart rate 89 per minute, blood pressure 120/76, oxygen saturation 94% on room air and respiration rate 20 per minute. HEENT: Pallor positive. NECK: No lymphadenopathy. CHEST: Air entry present and equal bilateral. No added sounds. CARDIOVASCULAR: S1 and S2 normal. No murmur. No gallop. ABDOMEN: Soft and nontender. No hepatosplenomegaly. EXTREMITIES: No edema. CENTRAL NERVOUS SYSTEM: Alert and oriented x3. No focal sensory or motor deficits. LABORATORY DATA: White count 6.5, hemoglobin 9.3, hematocrit 29.4 and platelet 184. Sodium 134, potassium 3.9 and creatinine 0.5. MRI of the brain reviewed, there is decrease in size of 2 of the lesions, third lesion in allyson is sightly larger by few millimeters, previously 15 mm, now 19 mm, this lesion has not been treated. ASSESSMENT AND PLAN: 1. Lung cancer, adenocarcinoma stage IV with metastatic lesion to the brain, status post gamma knife treatment to the brain cycle of chemotherapy with carboplatin and Abraxane. Tolerated chemotherapy well. She is currently on oral steroid, Decadron 2 mg, we will continue that until the lesion in allyson is treated. We will contact , neurologist who is coordinating the gamma knife treatment to expedite the treatment to the third lesion. 2. We will continue chemotherapy, carbo, abraxane as outpatient. 3. Mild anemia. We will check the iron studies, B12, folate levels. 4. Infectious Disease. She has oral thrush, likely due to steroid intake, we will continue Diflucan 100 mg daily until she is off steroids. She is on Valtrex and Bactrim prophylactic for PCP and herpes. 5. Continue Keppra 500 mg p.o. b.i.d., consultation Dr. Diaz appreciated, note reviewed. Discuss with Dr. Orozco. Parisa Santos MD
--- NOTE | 2018-10-24 18:38 | CARD ---
APPROVED REPORT Date of service: 10/23/2018 EKG Measurement Heart [id number] <Conclusion> Normal sinus rhythm Normal ECG
--- NOTE | 2018-10-25 07:54 | DS ---
HOSPITAL COURSE: The patient was seen and evaluated. The patient doing very well. Eating and tolerating. Headache is improved. I spoke to Dr. Santos, and the patient is going to be discharged today. She has been discharged on Decadron 4 mg twice a day that will be tapered down and she will follow with Dr. Santos as outpatient. She is also given oral Diflucan that she will continue at home and she will follow with Dr. Andersen and Dr. Santos as outpatient. Tito Orzoco MD
[2018-10-27] MEDS ORDERED: Tmp-Smz 800 mg-160 mg DS Tab PO SCH (10:00)
== END 2018-10-24 18:01 | disposition home or self-care (01) | DRG 54 ==
LOC: ED 13:04 → ERH 14:37 → 3RSO 18:26
PROVIDERS: ADMIT Internal Medicine; ATTEND Internal Medicine
DX: C79.31 Secondary malignant neoplasm of brain (principal); G93.6 Cerebral edema; C34.90 Malignant neoplasm of unspecified part of unspecified bronchus or lung; G81.94 Hemiplegia, unspecified affecting left nondominant side; R64 Cachexia; B37.0 Candidal stomatitis; Z68.1 Body mass index [BMI] 19.9 or less, adult; R13.10 Dysphagia, unspecified; J44.9 Chronic obstructive pulmonary disease, unspecified; R62.7 Adult failure to thrive; R63.0 Anorexia; M50.30 Other cervical disc degeneration, unspecified cervical region; R59.0 Localized enlarged lymph nodes; T38.0X5A Adverse effect of glucocorticoids and synthetic analogues, initial encounter; D64.9 Anemia, unspecified; R53.1 Weakness; E27.9 Disorder of adrenal gland, unspecified; F17.200 Nicotine dependence, unspecified, uncomplicated; Z79.82 Long term (current) use of aspirin; Z79.899 Other long term (current) drug therapy

== ENCOUNTER 2018-11-20 11:05 | Inpatient (IN) | payer MEDICARE, BC ==
[2018-11-20] MEDS ORDERED: Vancomycin 1gm in NS 250ml 1 GM/250 ML BAG IVPB STA (11:22)
[2018-11-20] MEDS ORDERED: Cefepime IV 2 gm in NS 2 GM/100 ML BAG IVPB STA (11:22)
[2018-11-20] MEDS ORDERED: Sodium Chloride 0.9% 1,000 ML IV ONE (11:25)
[2018-11-20 11:46] LABS: VENOUS BLOOD GAS BASE EXCESS 3.5 mmol/L (0.0-2.0); VENOUS BLOOD GAS PO2 37 mm/Hg (30-55)
[2018-11-20 12:06] LABS: BASO # 0.03 K/mm3 (0.0-2.0); BASO % 0.3 % (0.0-3.0); EOS # 0.1 (0.0-0.7); EOS % 1.5 % (1.5-5.0); HEMOGLOBIN 10.6 g/dL (12.0-16.0); LYMPH # 1.3 (1.2-3.4); LYMPH % 14.7 % (22.0-35.0); MEAN CORPUSCULAR HEMOGLOBIN 32.5 pg (25.0-35.0); MEAN CORPUSCULAR HGB CONC 31.3 g/dl (31.0-37.0); MEAN PLATELET VOLUME 8.4 fl (7.0-11.0); MONO # 0.6 (0.1-0.6); RBC 3.26 10^6/uL (3.5-6.1); WHITE BLOOD COUNT 8.9 10^3/uL (4.5-11.0)
[2018-11-20 12:14] LABS: INR 1.14; PARTIAL THROMBOPLASTIN TIME 27.4 Seconds (26.9-38.3); PROTHROMBIN TIME 12.9 SECONDS (9.4-12.5)
[2018-11-20 12:24] LABS: ALB/GLOB RATIO 1.1 (1.1-1.8); ALBUMIN 3.3 g/dL (3.0-4.8); ALT/SGPT 48 U/L (7-56); AST/SGOT 63 U/L (14-36); BLOOD UREA NITROGEN 15 mg/dL (7-21); CALCIUM 8.9 mg/dL (8.4-10.5); GFR NON-AFRICAN AMERICAN > 60
--- NOTE | 2018-11-20 12:25 | CT ---
Date of service: 11/20/2018 PROCEDURE: CT HEAD WITHOUT CONTRAST. HISTORY: dizziness, h/o lung CA mets to brain COMPARISON: 10/23/2018 CT and MRI 10/24/2018 TECHNIQUE: Axial computed tomography images were obtained through the head/brain without intravenous contrast. Radiation dose: Total exam DLP = 831.78 mGy-cm. This CT exam was performed using one or more of the following dose reduction techniques: Automated exposure control, adjustment of the mA and/or kV according to patient size, and/or use of iterative reconstruction technique. FINDINGS: HEMORRHAGE: There is a 6 mm cortical hemorrhage in the right parietal lobe with surrounding edema. There is also an area of vasogenic edema in the left mid frontal lobe. There is extensive edema on the left side of the allyson. These findings correspond to the enhancing metastatic lesions seen on the recent MRI BRAIN: As above VENTRICLES: Unremarkable. No hydrocephalus. CALVARIUM: Unremarkable. PARANASAL SINUSES: Unremarkable as visualized. No significant inflammatory changes. MASTOID AIR CELLS: Unremarkable as visualized. No inflammatory changes. OTHER FINDINGS: None. IMPRESSION: There is a 6 mm cortical hemorrhage in the right parietal lobe with surrounding edema. There is also an area of vasogenic edema in the left mid frontal lobe. There is extensive edema on the left side of the allyson. These findings correspond to the enhancing metastatic lesions seen on the recent MRI
[2018-11-20 12:26] LABS: B-TYPE NATRIURETIC PEPTIDE 363 pg/mL (0-450); TROPONIN I < 0.01 ng/mL
--- NOTE | 2018-11-20 12:36 | RAD ---
Date of service: 11/20/2018 HISTORY: Sepsis Patient COMPARISON: 09/14/2018 TECHNIQUE: 1 view obtained. FINDINGS: LUNGS: There is consolidation and a pleural effusion at the right lung base. The left lung is clear PLEURA: Right-sided effusion CARDIOVASCULAR: No aortic atherosclerotic calcification present. Normal cardiac size. No pulmonary vascular congestion. OSSEOUS STRUCTURES: No significant abnormalities. VISUALIZED UPPER ABDOMEN: Normal. OTHER FINDINGS: None. IMPRESSION: There is consolidation and a pleural effusion at the right lung base. The left lung is clear
[2018-11-20 12:39] LABS: CK MB% 0.5 % (2.5-3.0); CK-MB 7.4 ng/mL (0.0-3.6)
--- NOTE | 2018-11-20 12:59 | ED PDOC ---
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 Santos for evaluation of shortness of breath, worsening cough, diaphoresis, and weakness for the past few days. Patient reports when she stops walking she feels short of breath. Patient reports she was taken off 2mg prednisone 2 days ago. Patient denies any fever, chills, chest pain, nausea, vomiting, diarrhea, urinary symptoms, back pain, neck pain, headache, dizziness, or any other complaints. PMD: Dr. Orozco Symptom Onset: Gradual Symptom Course: Unchanged Activities at Onset: Light Context: Home Past Medical History - Provider Review Nursing Documentation Reviewed: Yes Primary Care Provider: Myla Andersen - Infectious Disease Hx of Infectious Diseases: None - Reproductive Menopause: Yes - Cardiac Hx Pacemaker: No - Pulmonary Hx Chronic Obstructive Pulmonary Disease (COPD): Yes - Neurological Hx Paralysis: No - HEENT Hx HEENT Disorder: No - Renal Hx Renal Disorder: No - Endocrine/Metabolic Hx Endocrine Disorders: No - Hematological/Oncological Hx Blood Transfusions: No - Integumentary Hx Dermatological Disorder: No - Musculoskeletal/Rheumatological Hx Falls: No - Gastrointestinal Hx Gastrointestinal Disorders: No - Genitourinary/Gynecological Hx Genitourinary Disorders: No - Psychiatric Hx Emotional Abuse: No Hx Physical Abuse: No Hx Substance Use: No - Surgical History Other/Comment: port a cath on the right chest wall - Anesthesia Hx Anesthesia: Yes Hx Anesthesia Reactions: No Hx Malignant Hyperthermia: No - Suicidal Assessment Feels Threatened In Home Enviroment: No Family/Social History - Physician Review Nursing Documentation Reviewed: Yes Family/Social History: No Known Family HX Smoking Status: Former Smoker Hx Alcohol Use: Yes (SOCIAL WINE) Hx Substance Use: No Allergies/Home Meds Allergies/Adverse Reactions: Allergies No Known Allergies Allergy (Verified 11/20/18 11:32) Home Medications: Home Meds Medication Instructions Recorded Confirmed Gabapentin [Neurontin] 300 mg PO TID 04/26/18 11/20/18 Rosuvastatin Calcium [Crestor] 10 mg PO DAILY 04/26/18 11/20/18 Nortriptyline [Pamelor] 10 mg PO HS 09/11/18 11/20/18 oxyCODONE [oxyCONTIN Extended 40 mg PO DAILY 09/12/18 11/20/18 Release Tab] Aspirin [Ecotrin] 81 mg PO DAILY 09/19/18 11/20/18 Pantoprazole [Protonix EC Tab] 40 mg PO DAILY 09/19/18 11/20/18 Review of Systems - Physician Review All systems were reviewed & negative as marked: Yes - Review of Systems Constitutional: absent: Fevers, Other (chills) Respiratory: SOB, Cough Cardiovascular: absent: Chest Pain Gastrointestinal: absent: Diarrhea, Nausea, Vomiting Genitourinary Female: absent: Dysuria, Frequency, Hematuria Musculoskeletal: absent: Back Pain, Neck Pain Neurological: Other (weakness). absent: Headache, Dizziness Physical Exam Vital Signs Reviewed: Yes Vital Signs Temp Pulse Resp BP Pulse Ox 11/20/18 11:22 98.2 F 108 H 20 105/62 95 Temperature: Afebrile Blood Pressure: Normal Pulse: Tachycardic Respiratory Rate: Normal Appearance: Positive for: Well-Appearing, Non-Toxic, Comfortable Pain Distress: None Mental Status: Positive for: Alert and Oriented X 3 - Systems Exam Head: Present: Atraumatic, Normocephalic Pupils: Present: PERRL Extroacular Muscles: Present: EOMI Conjunctiva: Present: Normal Mouth: Present: Moist Mucous Membranes Neck: Present: Normal Range of Motion Respiratory/Chest: Present: Decreased Breath Sounds (to the right). No: Respiratory Distress, Accessory Muscle Use Cardiovascular: Present: Regular Rate and Rhythm, Normal S1, S2. No: Murmurs Abdomen: No: Tenderness, Distention, Peritoneal Signs Back: Present: Normal Inspection Upper Extremity: Present: Normal Inspection. No: Cyanosis, Edema Lower Extremity: Present: Normal Inspection. No: Edema Neurological: Present: GCS=15, CN II-XII Intact, Speech Normal Skin: Present: Warm, Dry, Normal Color. No: Rashes Psychiatric: Present: Alert, Oriented x 3, Normal Insight, Normal Concentration Medical Decision Making ED Course and Treatment: 11/20/18 13:01 Impression: 68 year old female presents complaining of shortness of breath and worsening cough associated with diaphoresis and weakness for the past couple of days. Plan: -- VBG -- CT Head -- EKG -- Labs -- Chest X-ray -- Maxipime, IV Fluids, Vancomycin -- Blood Culture -- Sputum culture -- Urine Culture -- Procalcitonin serum -- Urinalysis -- Reassess and disposition Prior Visits: Notes and results from previous visits were reviewed. Progress Notes: EKG shows sinus at 98 BPM with normal axis and normal intervals. Interpreted by me. Chest X-ray Dictator : Rian Hills MD Report Date : 11/20/2018 12:32:32 IMPRESSION: There is consolidation and a pleural effusion at the right lung base. The left lung is clear PROCEDURE: CT HEAD WITHOUT CONTRAST. Dictator : Rian Hills MD Report Date : 11/20/2018 12:22:00 IMPRESSION: There is a 6 mm cortical hemorrhage in the right parietal lobe with surrounding edema. There is also an area of vasogenic edema in the left mid frontal lobe. There is extensive edema on the left side of the allyson. These findings correspond to the enhancing metastatic lesions seen on the recent MRI 11/20/18 13:[address] Santos and Dr. Orozco who are aware and agrees with the plan. Dr. Orozco accepts patient into her service. - Lab Interpretations Lab Results: pO2 37 mm/Hg (30-55) 11/20/18 11:30 VBG pH 7.40 (7.32-7.43) 11/20/18 11:30 VBG pCO2 47.0 (40-60) 11/20/18 11:30 VBG HCO3 29.1 mmol/l (21-28) H 11/20/18 11:30 VBG Total CO2 30.5 mmol.L (22-28) H 11/20/18 11:30 VBG O2 Sat (Calc) 73.3 % (40-65) H 11/20/18 11:30 VBG Base Excess 3.5 mmol/L (0.0-2.0) H 11/20/18 11:30 VBG Potassium 4.1 mmol/L (3.6-5.2) 11/20/18 11:30 Sodium 135.0 mmol/L (132-148) 11/20/18 11:30 Chloride 102.0 mmol/L (98-107) 11/20/18 11:30 Glucose 112 mg/dl (65-105) H 11/20/18 11:30 Lactate 1.0 mmol/L (0.7-2.1) 11/20/18 11:30 FiO2 21.0 % 11/20/18 11:30 PT 12.9 SECONDS (9.4-12.5) H 11/20/18 11:05 INR 1.14 11/20/18 11:05 APTT 27.4 Seconds (26.9-38.3) 11/20/18 11:05 Troponin I < 0.01 ng/mL 11/20/18 11:05 NT-Pro-B Natriuret Pep 363 pg/mL (0-450) 11/20/18 11:05 Total Bilirubin 0.6 mg/dL (0.2-1.3) 11/20/18 11:05 AST 63 U/L (14-36) H D 11/20/18 11:05 ALT 48 U/L (7-56) 11/20/18 11:05 Alkaline Phosphatase 80 U/L (38-126) 11/20/18 11:05 Total Protein 6.4 g/dL (5.8-8.3) 11/20/18 11:05 Albumin 3.3 g/dL (3.0-4.8) 11/20/18 11:05 Globulin 3.1 gm/dL 11/20/18 11:05 Albumin/Globulin Ratio 1.1 (1.1-1.8) 11/20/18 11:05 I have reviewed the lab results: Yes - RAD Interpretation Radiology Orders: 11/20/18 11:22 CHEST PORTABLE [RAD] Stat 11/20/18 11:25 HEAD W/O CONTRAST [CT] Stat [employer] Worker: Radiologist - EKG Interpretation Interpreted by ED Physician: Yes Type: 12 lead EKG - Medication Orders Current Medication Orders: Sodium Chloride (Sodium Chloride 0.9%) 1,000 mls @ 250 mls/hr IV .Q4H ONE Stop: 11/20/18 15:24 Last Admin: 11/20/18 12:19 Dose: 250 mls/hr eMAR Start Stop Document 11/20/18 12:19 CD (Rec: 11/20/18 12:20 [id number] Intravenous Solution Start Date 11/20/18 Start Time 12:19 End Date 11/20/18 End time 16:19 Total Infusion Time 240 Discontinued Medications Cefepime HCl (Maxipime 2gm) 2 gm in 100 mls @ 100 mls/hr IVPB STAT STA; Protocol Stop: 11/20/18 12:21 Last Admin: 11/20/18 12:20 Dose: 100 mls/hr eMAR Start Stop Document 11/20/18 12:20 CD (Rec: 11/20/18 12:20 CD [id number] Intravenous Solution Start Date 11/20/18 Start Time 12:20 End Date 11/20/18 End time 13:20 Total Infusion Time 60 Vancomycin HCl (Vancomycin 1gm) 1 gm in 250 mls @ 167 mls/hr IVPB STAT STA; Protocol Stop: 11/20/18 12:51 - Scribe Statement The provider has reviewed the documentation as recorded by the Kwame Borrero Provider Scribe Attestation: All medical record entries made by the Kwame were at my direction and personally dictated by me. I have reviewed the chart and agree that the record accurately reflects my personal performance of the history, physical exam, medical decision making, and the department course for this patient. I have also personally directed, reviewed, and agree with the discharge instructions and disposition. Disposition/Present on Arrival - Present on Arrival Any Indicators Present on Arrival: No History of DVT/PE: No History of Uncontrolled Diabetes: No Urinary Catheter: No History of Decub. Ulcer: No History Surgical Site Infection Following: None - Disposition Have Diagnosis and Disposition been Completed?: Yes Diagnosis: Weakness, Pneumonia, Pleural effusion Disposition Time: 12:40 Condition: FAIR
[2018-11-20 16:50] LABS: URINE APPEARANCE CLEAR (CLEAR); URINE BILIRUBIN NEGATIVE (NEGATIVE); URINE BLOOD TRACE-LYSED (NEGATIVE); URINE COLOR LIGHT YELLOW (YELLOW); URINE GLUCOSE (UA) NEGATIVE (NEGATIVE); URINE LEUKOCYTE ESTERASE NEGATIVE Leu/uL (NEGATIVE); URINE PROTEIN NEGATIVE mg/dL (<30 mg/dL); URINE UROBILINOGEN 0.2 E.U./dL (<1 E.U./dL)
[2018-11-20 16:56] LABS: URINE RBC 0 - 2 /hpf (0-2); URINE WBC 0 - 2 /hpf (0-6)
[2018-11-20] MEDS: Sodium Chloride 0.9% 1,000 ML IV SCH (18:29)
[2018-11-20] MEDS: Albuterol-Ipratrop 3 mg / 0.5 (3 ml) UD IH SCH (18:30)
[2018-11-20] MEDS ORDERED: HYDROmorphone 1 mg/ml ISec IVP PRN (19:01)
[2018-11-20] MEDS ORDERED: Albuterol-Ipratrop 3 mg / 0.5 (3 ml) UD IH PRN (19:01)
[2018-11-20] MEDS ORDERED: Cefepime 0.5 GM in Sodium Chloride 0.9% 100 ML IVPB SCH (19:15)
[2018-11-20] MEDS ORDERED: Vancomycin 500mg in NS 500 MG/100 ML BAG IVPB SCH (22:00)
--- NOTE | 2018-11-20 22:46 | HP ---
DATE OF EXAM: 11/20/2018 HISTORY OF PRESENT ILLNESS: The patient is 68 years old, known to me from multiple previous admissions who was brought to the emergency room because of altered mental status. Patient was recently diagnosed with a mediastinal and lung malignancy with mets to the brain. She had gamma knife treatment done for her brain mets. She came to emergency room after Dr. Santos evaluated the patient. She complained of shortness of breath, cough, and congestion. Patient states she has been feeling very weak, tired, sweaty, and the whole body hurts. She cannot walk even a small distance. No fever or chills. Does complain of nausea and decreased appetite. No diarrhea. No hemoptysis. No hematemesis. PAST MEDICAL HISTORY: Significant for; 1. Degenerative disc disease. 2. Recently diagnosed mediastinal CA. 3. Recent left hemiparesis. 4. Adrenal mass. 5. Cervical degenerative disc disease. ALLERGIES: SHE IS NOT ALLERGIC TO ANY MEDICATIONS. MEDICATIONS AT HOME: She is on dexamethasone 2 mg daily, aspirin 81 mg daily, Valtrex 500 mg daily, oxycodone, Keppra 500 twice a day, sulfamethoxazole, rosuvastatin, Protonix, nortriptyline, gabapentin, and Diflucan. SOCIAL HISTORY: She is , lives with her . She used to smoke one pack per day for years. She used to be a heavy smoker and used to drink. PHYSICAL EXAMINATION: GENERAL: She looks pale, cachectic with mild shortness of breath. VITAL SIGNS: She is afebrile. Pulse 87, respirations 20, blood pressure of 89/49. LUNGS: Bilateral diffuse breath sounds. HEART: S1 and S2 audible. ABDOMEN: Soft and nontender. No rebound. No guarding. NEUROLOGIC: Patient is awake and alert, able to communicate. LABORATORY DATA: WBC is 8.9, hemoglobin 10.6, hematocrit 33.9, and platelets 264. Chemistry; sodium 135, potassium 4.2, chloride 100, CO2 of 28, BUN 15, creatinine 0.7. Blood sugar 119. AST 63. ALT 48. LDL is 846. She had CT of the head and brain done that showed a 6 mm cortical hemorrhage in the right parietal lobe with surrounding edema. There is also an area of vasogenic edema in the left mid frontal lobe. Extensive edema on the left side of the allyson corresponding to enhancing mets. She had x-ray of the chest done. There is a consolidation and pleural effusion at the right lung base and the left lung is clear. ASSESSMENT: 1. Community-acquired pneumonia. 2. Lung and mediastinal cancer with metastasis to the brain. 3. Intracranial hemorrhage with vasogenic edema. 4. History of degenerative disc disease. 5. History of heavy smoking. PLAN: Patient will be started on IV antibiotics. Start her on Decadron and nebulizer treatment, analgesic as needed. We will request Dr. Madsen, Dr. Adal Diaz and Dr. Santos for evaluation. Tito Orozco MD
[2018-11-20] MEDS: Cefepime 1gm in NS 100ml 1 GM/100 ML BAG IVPB SCH (23:00)
[2018-11-21] MEDS: oxyCODONE 15 mg Immediate Release Tab PO PRN ×3 (03:25→18:32)
[2018-11-21] MEDS ORDERED: guaiFENesin DM 200 mg-20 mg/10 ml UD PO ONE (05:35)
[2018-11-21] MEDS: Cefepime 1gm in NS 100ml 1 GM/100 ML BAG IVPB SCH ×3 (05:58→22:07)
[2018-11-21] MEDS: Albuterol-Ipratrop 3 mg / 0.5 (3 ml) UD IH SCH ×3 (07:49→19:02)
[2018-11-21] MEDS: Vancomycin 1gm in NS 250ml 1 GM/250 ML BAG IVPB SCH ×2 (08:43→22:07)
[2018-11-21 09:02] VITALS: RESP 20
--- NOTE | 2018-11-21 09:07 | CARD ---
APPROVED REPORT Date of service: 11/20/2018 EKG Measurement Heart [id number] <Conclusion> Normal sinus rhythm Normal ECG
[2018-11-21] MEDS ORDERED: Enoxaparin 30 mg Syringe SC SCH (10:00)
[2018-11-21] MEDS ORDERED: oxyCODONE 20 mg ER Tab (oxyCONTIN) PO SCH (10:00)
--- NOTE | 2018-11-21 10:06 | CP.PCM.CON ---
<Manuel Caraballo - Last Filed: 11/21/18 15:01> History of Present Illness - History of Present Illness History of Present Illness: Infectious disease consult note: 68-year-old female with past medical history of lung cancer with mets to the brain, S/P gamma knife treatment, COPD presents to the hospital for shortness of breath, cough, chills and diaphoresis. Patient states that her symptoms started a few days ago and now has gotten progressively worse. She states that she went to visit her oncologist Dr. levy which stated she should come to the hospital for further treatment and evaluation. Of note patient was just recently admitted to the hospital in October 2018 for intractable headache found to have brain mets. Infectious disease was consulted for pneumonia. 12 point ROS performed negative other than stated above PMH: As above PSH: Lung biopsy Medications: Refer to [facility] Allergies: No known allergies SH: Former smoker, denies any drug or alcohol use FH: Denies Review of Systems - Review of Systems All systems: reviewed and no additional remarkable complaints except Past Patient History - Infectious Disease Hx of Infectious Diseases: None - Past Social History Smoking Status: Former Smoker - CARDIAC Hx Cardiac Disorders: No - PULMONARY Hx Respiratory Disorders: Yes Hx Asthma: Yes Hx Bronchitis: Yes Hx Chronic Obstructive Pulmonary Disease (COPD): No Hx Emphysema: No Hx Pneumonia: Yes Hx Respiratory Aspiration: No Hx Respiratory Tract Infection: Yes Hx Sleep Apnea: No Hx Tuberculosis: No - NEUROLOGICAL Hx Neurological Disorder: Yes Hx Parkinson's Disease: Yes Hx Seizures: Yes Other/Comment: SEZURTE LIKE ACTIVITY, DUE TO BRAIN CA - HEENT Hx HEENT Problems: Yes Hx Cataracts: Yes - RENAL Hx Chronic Kidney Disease: No - ENDOCRINE/METABOLIC Hx Endocrine Disorders: Yes Other/Comment: THYROID NODULES - HEMATOLOGICAL/ONCOLOGICAL Hx Blood Disorders: No - INTEGUMENTARY Hx Dermatological Problems: No - MUSCULOSKELETAL/RHEUMATOLOGICAL Hx Musculoskeletal Disorders: Yes Hx Falls: Yes (FELL R SIDE) Other/Comment: R SIDE WEAK - GASTROINTESTINAL Hx Gastrointestinal Disorders: Yes Hx Gastroesophageal Reflux: Yes - GENITOURINARY/GYNECOLOGICAL Hx Genitourinary Disorders: No - PSYCHIATRIC Hx Psychophysiologic Disorder: No - SURGICAL HISTORY Hx Surgeries: Yes Hx Cardiac Catheterization: Yes Other/Comment: NECK PLATE, THYROIDECTOMY, B/L CATARACT SX - ANESTHESIA Hx Anesthesia: Yes Hx Anesthesia Reactions: No Hx Malignant Hyperthermia: No Meds Allergies/Adverse Reactions: Allergies Allergy/AdvReac Type Severity Reaction Status Date / Time No Known Allergies Allergy Verified 11/20/18 11:32 - Medications Medications: Current Medications Acetaminophen (Tylenol 325mg Tab) 650 mg PO Q6H PRN PRN Reason: Fever >100.4 F Last Admin: 11/20/18 21:09 Dose: 650 mg Albuterol/Ipratropium (Duoneb 3 Mg/0.5 Mg (3 Ml) Ud) 3 ml IH TID [facility] Stop: 11/21/18 14:01 Last Admin: 11/21/18 07:49 Dose: 3 ml Albuterol/Ipratropium (Duoneb 3 Mg/0.5 Mg (3 Ml) Ud) 3 ml IH Q2H PRN PRN Reason: Shortness of Breath Last Admin: 11/20/18 23:07 Dose: 3 ml Aspirin (Ecotrin) 81 mg PO DAILY [facility] Atorvastatin Calcium (Lipitor) 40 mg PO DIN [facility] Dexamethasone (Decadron Inj) 4 mg IVP BID [facility] Enoxaparin Sodium (Lovenox) 30 mg SC DAILY [facility]; Protocol Gabapentin (Neurontin) 300 mg PO TID [facility]; Protocol Last Admin: 11/20/18 18:30 Dose: 300 mg Hydromorphone HCl (Dilaudid) 1 mg IVP Q4H PRN PRN Reason: Pain, moderate (4-7) Sodium Chloride (Sodium Chloride 0.9%) 1,000 mls @ 60 mls/hr IV .[id number] [facility] Last Admin: 11/20/18 18:29 Dose: 60 mls/hr Doxycycline Hyclate 100 mg/ (Sodium Chloride) 100 mls @ 100 mls/hr IVPB Q12 [facility]; Protocol Last Admin: 11/21/18 04:32 Dose: 100 mls/hr Cefepime HCl (Maxipime 1gm) 1 gm in 100 mls @ 100 mls/hr IVPB Q8 [facility]; Protocol Stop: 11/29/18 22:01 Last Admin: 11/21/18 05:58 Dose: 100 mls/hr Vancomycin HCl (Vancomycin 1gm) 1 gm in 250 mls @ 167 mls/hr IVPB Q12H [facility]; Protocol Stop: 11/29/18 07:46 Last Admin: 11/21/18 08:43 Dose: 167 mls/hr Levetiracetam (Keppra) 500 mg PO BID [facility] Last Admin: 11/20/18 18:30 Dose: 500 mg Nortriptyline HCl (Pamelor) 10 mg PO HS [facility] Last Admin: 11/20/18 22:24 Dose: 10 mg Ondansetron HCl (Zofran Inj) 4 mg IVP Q6H PRN PRN Reason: Nausea/Vomiting Oxycodone HCl (Oxycodone Immediate Release Tab) 15 mg PO Q6H PRN PRN Reason: Pain, moderate (4-7) Last Admin: 11/21/18 08:44 Dose: 15 mg Trimethoprim/Sulfamethoxazole (Bactrim Ds Tab) 1 tab PO BID [facility]; Protocol Stop: 11/25/18 18:00 Valacyclovir HCl (Valtrex) 500 mg PO DAILY [facility]; Protocol Physical Exam - Constitutional Appears: No Acute Distress - Head Exam Head Exam: ATRAUMATIC, NORMOCEPHALIC - Eye Exam Eye Exam: EOMI - ENT Exam ENT Exam: Mucous Membranes Moist - Respiratory Exam Respiratory Exam: Clear to Auscultation Bilateral. absent: Rales, Wheezes - Cardiovascular Exam Cardiovascular Exam: REGULAR RHYTHM, +S1, +S2 - GI/Abdominal Exam GI & Abdominal Exam: Normal Bowel Sounds, Soft. absent: Tenderness - Extremities Exam Extremities exam: Negative for: calf tenderness, pedal edema - Neurological Exam Neurological exam: Alert, Oriented x3 - Psychiatric Exam Psychiatric exam: Normal Mood Results - Vital Signs Recent Vital Signs: Last Vital Signs Temp 98.2 F 11/21/18 06:00 Pulse 99 H 11/21/18 06:00 Resp 20 11/21/18 06:00 BP 113/65 11/21/18 06:00 Pulse Ox 94 L 11/21/18 06:00 - Labs Result Diagrams: 11/20/18 11:05 11/20/18 11:05 Labs: Laboratory Results - last 24 hr 11/20/18 11/20/18 11/20/18 11:05 11:05 11:05 WBC 8.9 D RBC 3.26 L Hgb 10.6 L Hct 33.9 L MCV 104.0 D MCH 32.5 MCHC 31.3 RDW 19.0 H Plt Count 264 MPV 8.4 Neut % (Auto) 76.5 H Lymph % (Auto) 14.7 L [place] % (Auto) 7.0 H Eos % (Auto) 1.5 Baso % (Auto) 0.3 Lymph # (Auto) 1.3 [place] # (Auto) 0.6 Eos # (Auto) 0.1 Baso # (Auto) 0.03 Absolute Neuts (auto) 6.80 H PT 12.9 H INR 1.14 APTT 27.4 pO2 VBG pH VBG pCO2 VBG HCO3 VBG Total CO2 VBG O2 Sat (Calc) VBG Base Excess VBG Potassium Glucose Lactate FiO2 Sodium 135 Potassium 4.2 Chloride 100 Carbon Dioxide 28 Anion Gap 11 BUN 15 Creatinine 0.7 Est GFR ( Amer) > 60 Est GFR (Non-Af Amer) > 60 Random Glucose 119 H Calcium 8.9 Phosphorus 4.4 Magnesium 2.2 Total Bilirubin 0.6 AST 63 H D ALT 48 Alkaline Phosphatase 80 Lactate Dehydrogenase 846 H Total Creatine Kinase 1492 H CK-MB (CK-2) 7.4 H CK-MB (CK-2) % 0.5 L Troponin I < 0.01 C-React Prot High Sens NT-Pro-B Natriuret Pep 363 Total Protein 6.4 Albumin 3.3 Globulin 3.1 Albumin/Globulin Ratio 1.1 Procalcitonin Venous Blood Potassium Urine Color Urine Appearance Urine pH Ur Specific [place] Urine Protein Urine Glucose (UA) Urine Ketones Urine Blood Urine Nitrate Urine Bilirubin Urine Urobilinogen Ur Leukocyte Esterase Urine RBC Urine WBC Ur Epithelial Cells 11/20/18 11/20/18 11/20/18 11:05 11:30 15:00 WBC RBC Hgb Hct MCV MCH MCHC RDW Plt Count MPV Neut % (Auto) Lymph % (Auto) [place] % (Auto) Eos % (Auto) Baso % (Auto) Lymph # (Auto) [place] # (Auto) Eos # (Auto) Baso # (Auto) Absolute Neuts (auto) PT INR APTT pO2 37 VBG pH 7.40 VBG pCO2 47.0 VBG HCO3 29.1 H VBG Total CO2 30.5 H VBG O2 Sat (Calc) 73.3 H VBG Base Excess 3.5 H VBG Potassium 4.1 Glucose 112 H Lactate 1.0 FiO2 21.0 Sodium 135.0 Potassium Chloride 102.0 Carbon Dioxide Anion Gap BUN Creatinine Est GFR ( Amer) Est GFR (Non-Af Amer) Random Glucose Calcium Phosphorus Magnesium Total Bilirubin AST ALT Alkaline Phosphatase Lactate Dehydrogenase Total Creatine Kinase CK-MB (CK-2) CK-MB (CK-2) % Troponin I C-React Prot High Sens > 15.00 H NT-Pro-B Natriuret Pep Total Protein Albumin Globulin Albumin/Globulin Ratio Procalcitonin 0.13 L Venous Blood Potassium 4.1 Urine Color Urine Appearance Urine pH Ur Specific [place] Urine Protein Urine Glucose (UA) Urine Ketones Urine Blood Urine Nitrate Urine Bilirubin Urine Urobilinogen Ur Leukocyte Esterase Urine RBC Urine WBC Ur Epithelial Cells 11/20/18 16:35 WBC RBC Hgb Hct MCV MCH MCHC RDW Plt Count MPV Neut % (Auto) Lymph % (Auto) [place] % (Auto) Eos % (Auto) Baso % (Auto) Lymph # (Auto) [place] # (Auto) Eos # (Auto) Baso # (Auto) Absolute Neuts (auto) PT INR APTT pO2 VBG pH VBG pCO2 VBG HCO3 VBG Total CO2 VBG O2 Sat (Calc) VBG Base Excess VBG Potassium Glucose Lactate FiO2 Sodium Potassium Chloride Carbon Dioxide Anion Gap BUN Creatinine Est GFR ( Amer) Est GFR (Non-Af Amer) Random Glucose Calcium Phosphorus Magnesium Total Bilirubin AST ALT Alkaline Phosphatase Lactate Dehydrogenase Total Creatine Kinase CK-MB (CK-2) CK-MB (CK-2) % Troponin I C-React Prot High Sens NT-Pro-B Natriuret Pep Total Protein Albumin Globulin Albumin/Globulin Ratio Procalcitonin Venous Blood Potassium Urine Color Light yellow Urine Appearance Clear Urine pH 6.0 Ur Specific [place] 1.010 Urine Protein Negative Urine Glucose (UA) Negative Urine Ketones Negative Urine Blood Trace-lysed H Urine Nitrate Negative Urine Bilirubin Negative Urine Urobilinogen 0.2 Ur Leukocyte Esterase Negative Urine RBC 0 - 2 Urine WBC 0 - 2 Ur Epithelial Cells 1 - 3 Assessment & Plan - Assessment and Plan (Free Text) Assessment: Healthcare associated pneumonia Intracranial hemorrhage in the right parietal lobe with surrounding edema Anemia Lung cancer with metastasis to the brain COPD Continue with Vanc, cefepime and doxycycline Patient is also on Valtrex and Bactrim for ppx Chest x-ray shows consolidation of pleural effusion in the right lung base CT of the head shows intracranial hemorrhage Follow-up septic work-up, procalcitonin is negative Follow-up oncology and neurology recommendations Continue to monitor for any changes R sided port Case and plan to be reviewed and discussed with Dr. Madsen <Jaime Madsen - Last Filed: 11/21/18 21:40> Meds - Medications Medications: Current Medications Acetaminophen (Tylenol 325mg Tab) 650 mg PO Q6H PRN PRN Reason: Fever >100.4 F Last Admin: 11/20/18 21:09 Dose: 650 mg Albuterol/Ipratropium (Duoneb 3 Mg/0.5 Mg (3 Ml) Ud) 3 ml IH Q2H PRN PRN Reason: Shortness of Breath Last Admin: 11/20/18 23:07 Dose: 3 ml Albuterol/Ipratropium (Duoneb 3 Mg/0.5 Mg (3 Ml) Ud) 3 ml IH [id number] [facility] Last Admin: 11/21/18 19:02 Dose: 3 ml Aspirin (Ecotrin) 81 mg PO DAILY [facility] Last Admin: 11/21/18 10:58 Dose: Not Given Atenolol (Tenormin) 25 mg PO DAILY [facility] Last Admin: 11/21/18 18:23 Dose: 25 mg Atorvastatin Calcium (Lipitor) 40 mg PO DIN [facility] Last Admin: 11/21/18 18:23 Dose: 40 mg Dexamethasone (Decadron Inj) 4 mg IVP BID [facility] Last Admin: 11/21/18 18:22 Dose: 4 mg Enoxaparin Sodium (Lovenox) 30 mg SC DAILY [facility]; Protocol Last Admin: 11/21/18 10:59 Dose: Not Given Gabapentin (Neurontin) 300 mg PO TID [facility]; Protocol Last Admin: 11/21/18 18:23 Dose: 300 mg Hydromorphone HCl (Dilaudid) 1 mg IVP Q4H PRN PRN Reason: Pain, moderate (4-7) Sodium Chloride (Sodium Chloride 0.9%) 1,000 mls @ 60 mls/hr IV .[id number] [facility] Last Admin: 11/20/18 18:29 Dose: 60 mls/hr Doxycycline Hyclate 100 mg/ (Sodium Chloride) 100 mls @ 100 mls/hr IVPB Q12 [facility]; Protocol Last Admin: 11/21/18 10:59 Dose: 100 mls/hr Cefepime HCl (Maxipime 1gm) 1 gm in 100 mls @ 100 mls/hr IVPB Q8 [facility]; Protocol Stop: 11/29/18 22:01 Last Admin: 11/21/18 14:52 Dose: 100 mls/hr Vancomycin HCl (Vancomycin 1gm) 1 gm in 250 mls @ 167 mls/hr IVPB Q12H [facility]; Protocol Stop: 11/29/18 07:46 Last Admin: 11/21/18 08:43 Dose: 167 mls/hr Levetiracetam (Keppra) 500 mg PO BID [facility] Last Admin: 11/21/18 18:23 Dose: 500 mg Nortriptyline HCl (Pamelor) 10 mg PO HS [facility] Last Admin: 11/20/18 22:24 Dose: 10 mg Ondansetron HCl (Zofran Inj) 4 mg IVP Q6H PRN PRN Reason: Nausea/Vomiting Oxycodone HCl (Oxycodone Immediate Release Tab) 15 mg PO Q6H PRN PRN Reason: Pain, moderate (4-7) Last Admin: 11/21/18 18:32 Dose: 15 mg Trimethoprim/Sulfamethoxazole (Bactrim Ds Tab) 1 tab PO BID [facility]; Protocol Stop: 11/25/18 18:00 Valacyclovir HCl (Valtrex) 500 mg PO DAILY [facility]; Protocol Last Admin: 11/21/18 10:59 Dose: 500 mg Results - Vital Signs Recent Vital Signs: Last Vital Signs Temp 98.2 F 11/21/18 06:00 Pulse 122 H 11/21/18 18:23 Resp 20 11/21/18 06:00 BP 121/69 11/21/18 18:23 Pulse Ox 94 L 11/21/18 06:00 - Labs Result Diagrams: 11/20/18 11:05 11/20/18 11:05 Attending/Attestation - Attestation I have personally seen and examined this patient.: Yes I have fully participated in the care of the patient.: Yes I have reviewed all pertinent clinical information: Yes
[2018-11-21] MEDS: Dexamethasone 4 mg/1 ml IVP SCH ×2 (10:57→18:22)
--- NOTE | 2018-11-21 16:29 | CON ---
DATE: 11/21/2018 HISTORY OF PRESENT ILLNESS: This is a 68-year-old female with past medical history of lung cancer and disc disease and left hemiparesis and lung cancer with metastasis to the brain. CAT scan of the head was done which showed hemorrhage 6 mm and with right-side weakness, call to evaluate. The patient can stand and walk, not confused. ALLERGIES: NO KNOWN DRUG ALLERGY. MEDICATIONS: At home, dexamethasone, aspirin, Valtrex, Keppra twice a day, sulfamethoxazole, Protonix, nortriptyline, gabapentin, and Diflucan. SOCIAL HISTORY: lives with . She used to smoke a pack per day and used to drink not anymore. PHYSICAL EXAMINATION: VITAL SIGNS: Blood pressure is 89/49. HEENT: Normocephalic and atraumatic. NECK: Supple. NEUROLOGIC: Awake and oriented to self. Cranial nerves II through XII were tested. Pupil reactive. Spontaneous movements of all the extremities noted. Deep tendon reflexes 1+ mild, right side weakness and cerebellar gait deferred. IMPRESSION: Intracranial hemorrhage, small 6 mm with vasogenic edema and multiple metastasis and with mild right-sided weakness. Do physical therapy and neurosurgical consult. Andreas Diaz MD
--- NOTE | 2018-11-21 19:29 | PN ---
DATE: 11/21/2018 SUBJECTIVE: The patient is 68-year-old seen and examined. She states she feels better. Less shortness of breath. Denies any chest pain. Eating fair. says she seems to be less confused. PHYSICAL EXAMINATION: VITAL SIGNS: She is afebrile, pulse 99, respirations 20, blood pressure 113/65. LUNGS: Bilateral decreased breath sound at the bases. HEART: S1 and S2 audible. ABDOMEN: Soft, nontender, no rebound, no guarding. NEUROLOGIC: The patient is awake, alert, oriented. Able to communicate. SKIN: Face is puffy. No rashes notes. Symmetrical face. LABORATORY DATA: WBC 8.9, hemoglobin 10.6, hematocrit 33.9, platelets 264. Chemistry: Sodium 135, potassium 2.52, chloride 100, CO2 of 28. BUN 15, creatinine 0.7, blood sugar 119. LDH is 846, CPK 1492. C-reactive protein is more than 15. Blood cultures are negative. ASSESSMENT: 1. Status post lung carcinoma and mediastinal mass. 2. Right parietal lobe 6 mm cortical hemorrhage with surrounding edema, also with neurogenic edema in the left frontal lobe. 3. History of chronic degenerative disk disease. 4. History of brain metastasis, status post gamma-knife procedure. 5. Chronic anemia. PLAN: We will continue the patient on PCP prophylaxis. She is on dexamethasone 4 mg twice a day, hydromorphone as needed. We will maintain her on doxycycline. She is on cefepime. She is on oxycodone. Followup electrolytes. Follow up the patient in a.m. Tito Orozco MD
[2018-11-21] MEDS: Sodium Chloride 0.9% 1,000 ML IV SCH (22:08)
[2018-11-22] MEDS: Albuterol-Ipratrop 3 mg / 0.5 (3 ml) UD IH SCH ×4 (01:57→13:29)
[2018-11-22] MEDS: Cefepime 1gm in NS 100ml 1 GM/100 ML BAG IVPB SCH (05:41)
[2018-11-22] MEDS: Sodium Chloride 0.9% 1,000 ML IV SCH (05:41)
[2018-11-22 06:29] LABS: HEMOGLOBIN 9.3 g/dL (12.0-16.0); LYMPH # 0.4 (1.2-3.4); LYMPH % 5.6 % (22.0-35.0); MEAN CELL VOLUME 102.8 fl (80.0-105.0); MEAN CORPUSCULAR HEMOGLOBIN 32.5 pg (25.0-35.0); MEAN CORPUSCULAR HGB CONC 31.6 g/dl (31.0-37.0); MEAN PLATELET VOLUME 8.3 fl (7.0-11.0); MONO # 0.4 (0.1-0.6); MONO % 5.9 % (1.0-6.0); RBC 2.86 10^6/uL (3.5-6.1); RED CELL DISTRIBUTION WIDTH 18.1 % (11.5-14.5); WHITE BLOOD COUNT 6.7 10^3/uL (4.5-11.0)
[2018-11-22 07:10] LABS: ALB/GLOB RATIO 1.1 (1.1-1.8); ALBUMIN 3.1 g/dL (3.0-4.8); ALT/SGPT 38 U/L (7-56); AST/SGOT 33 U/L (14-36); BLOOD UREA NITROGEN 8 mg/dL (7-21); CALCIUM 8.5 mg/dL (8.4-10.5); GFR NON-AFRICAN AMERICAN > 60
[2018-11-22] MEDS: Vancomycin 1gm in NS 250ml 1 GM/250 ML BAG IVPB SCH (07:30)
--- NOTE | 2018-11-22 07:50 | CP.PCM.PN ---
<Manuel Caraballo - Last Filed: 11/22/18 12:24> Subjective - Date & Time of Evaluation Date of Evaluation: 11/22/18 Time of Evaluation: 10:00 - Subjective Subjective: Infectious disease progress note: Patient seen and examined at bedside. No acute events overnight. States that her cough seems better. No fevers. 12 point ROS performed and negative unless stated above. Objective - Vital Signs/Intake and Output Vital Signs (last 24 hours): Temp Pulse Resp BP Pulse Ox 98.2 F 81 20 121/69 94 L 11/21/18 06:00 11/22/18 06:00 11/21/18 06:00 11/21/18 18:23 11/21/18 06:00 Intake and Output: 11/22/18 11/22/18 06:59 18:59 Intake Total 1140 120 Balance 1140 120 - Medications Medications: Current Medications Acetaminophen (Tylenol 325mg Tab) 650 mg PO Q6H PRN PRN Reason: Fever >100.4 F Last Admin: 11/20/18 21:09 Dose: 650 mg Albuterol/Ipratropium (Duoneb 3 Mg/0.5 Mg (3 Ml) Ud) 3 ml IH Q2H PRN PRN Reason: Shortness of Breath Last Admin: 11/20/18 23:07 Dose: 3 ml Albuterol/Ipratropium (Duoneb 3 Mg/0.5 Mg (3 Ml) Ud) 3 ml IH [id number] [facility] Last Admin: 11/22/18 01:57 Dose: 3 ml Aspirin (Ecotrin) 81 mg PO DAILY [facility] Last Admin: 11/21/18 10:58 Dose: Not Given Atenolol (Tenormin) 25 mg PO DAILY [facility] Last Admin: 11/21/18 18:23 Dose: 25 mg Atorvastatin Calcium (Lipitor) 40 mg PO DIN [facility] Last Admin: 11/21/18 18:23 Dose: 40 mg Dexamethasone (Decadron Inj) 4 mg IVP BID [facility] Last Admin: 11/21/18 18:22 Dose: 4 mg Enoxaparin Sodium (Lovenox) 30 mg SC DAILY [facility]; Protocol Last Admin: 11/21/18 10:59 Dose: Not Given Gabapentin (Neurontin) 300 mg PO TID [facility]; Protocol Last Admin: 11/21/18 18:23 Dose: 300 mg Hydromorphone HCl (Dilaudid) 1 mg IVP Q4H PRN PRN Reason: Pain, moderate (4-7) Last Admin: 11/22/18 05:41 Dose: 1 mg Sodium Chloride (Sodium Chloride 0.9%) 1,000 mls @ 60 mls/hr IV .[id number] REGINE Last Admin: 11/22/18 05:41 Dose: 60 mls/hr Doxycycline Hyclate 100 mg/ (Sodium Chloride) 100 mls @ 100 mls/hr IVPB Q12 [facility]; Protocol Last Admin: 11/21/18 22:06 Dose: 100 mls/hr Cefepime HCl (Maxipime 1gm) 1 gm in 100 mls @ 100 mls/hr IVPB Q8 [facility]; Protocol Stop: 11/29/18 22:01 Last Admin: 11/22/18 05:41 Dose: 100 mls/hr Vancomycin HCl (Vancomycin 1gm) 1 gm in 250 mls @ 167 mls/hr IVPB Q12H [facility]; Protocol Stop: 11/29/18 07:46 Last Admin: 11/21/18 22:07 Dose: 167 mls/hr Levetiracetam (Keppra) 500 mg PO BID [facility] Last Admin: 11/21/18 18:23 Dose: 500 mg Nortriptyline HCl (Pamelor) 10 mg PO HS [facility] Last Admin: 11/21/18 22:06 Dose: 10 mg Ondansetron HCl (Zofran Inj) 4 mg IVP Q6H PRN PRN Reason: Nausea/Vomiting Oxycodone HCl (Oxycodone Immediate Release Tab) 15 mg PO Q6H PRN PRN Reason: Pain, moderate (4-7) Last Admin: 11/21/18 18:32 Dose: 15 mg Trimethoprim/Sulfamethoxazole (Bactrim Ds Tab) 1 tab PO BID [facility]; Protocol Stop: 11/25/18 18:00 Valacyclovir HCl (Valtrex) 500 mg PO DAILY [facility]; Protocol Last Admin: 11/21/18 10:59 Dose: 500 mg - Labs Labs: 11/22/18 06:00 11/22/18 06:00 PT 12.9 SECONDS (9.4-12.5) H 11/20/18 11:05 INR 1.14 11/20/18 11:05 APTT 27.4 Seconds (26.9-38.3) 11/20/18 11:05 - Constitutional Appears: No Acute Distress - Head Exam Head Exam: ATRAUMATIC, NORMOCEPHALIC - Eye Exam Eye Exam: EOMI - ENT Exam ENT Exam: Mucous Membranes Moist - Respiratory Exam Respiratory Exam: Clear to Ausculation Bilateral. absent: Rales, Rhonchi - Cardiovascular Exam Cardiovascular Exam: REGULAR RHYTHM, +S1, +S2 - GI/Abdominal Exam GI & Abdominal Exam: Soft. absent: Tenderness - Extremities Exam Extremities Exam: absent: Calf Tenderness, Pedal Edema - Neurological Exam Neurological Exam: Alert, Awake, Oriented x3 - Psychiatric Exam Psychiatric exam: Normal Mood - Skin Skin Exam: Dry, Warm Assessment and Plan - Assessment and Plan (Free Text) Assessment: Healthcare associated pneumonia Intracranial hemorrhage in the right parietal lobe with surrounding edema Anemia Lung cancer with metastasis to the brain COPD Continue with Vanc, cefepime and doxycycline. Upon d/c can go home with Levaquin 500mg PO Daily for 5 days. Cont Valtrex and Bactrim for ppx Chest x-ray shows consolidation of pleural effusion in the right lung base Follow-up septic work-up, procalcitonin is negative Follow-up oncology and neurology recommendations Continue to monitor for any changes R sided port Case and plan to be reviewed and discussed with Dr. Madsen <Jaime Madsen - Last Filed: 11/22/18 12:32> Objective - Vital Signs/Intake and Output Vital Signs (last 24 hours): Temp Pulse Resp BP Pulse Ox 97.3 F L 83 20 111/71 93 L 11/22/18 08:30 11/22/18 10:18 11/22/18 08:30 11/22/18 10:18 11/22/18 08:30 Intake and Output: 11/22/18 11/22/18 06:59 18:59 Intake Total 1140 120 Balance 1140 120 - Medications Medications: Current Medications Acetaminophen (Tylenol 325mg Tab) 650 mg PO Q6H PRN PRN Reason: Fever >100.4 F Last Admin: 11/20/18 21:09 Dose: 650 mg Albuterol/Ipratropium (Duoneb 3 Mg/0.5 Mg (3 Ml) Ud) 3 ml IH Q2H PRN PRN Reason: Shortness of Breath Last Admin: 11/20/18 23:07 Dose: 3 ml Albuterol/Ipratropium (Duoneb 3 Mg/0.5 Mg (3 Ml) Ud) 3 ml IH [id number] [facility] Last Admin: 11/22/18 07:56 Dose: 3 ml Aspirin (Ecotrin) 81 mg PO DAILY [facility] Last Admin: 11/21/18 10:58 Dose: Not Given Atenolol (Tenormin) 25 mg PO DAILY [facility] Last Admin: 11/22/18 10:18 Dose: 25 mg Atorvastatin Calcium (Lipitor) 40 mg PO DIN [facility] Last Admin: 11/21/18 18:23 Dose: 40 mg Dexamethasone (Decadron Inj) 4 mg IVP BID [facility] Last Admin: 11/22/18 10:19 Dose: 4 mg Enoxaparin Sodium (Lovenox) 30 mg SC DAILY [facility]; Protocol Last Admin: 11/21/18 10:59 Dose: Not Given Gabapentin (Neurontin) 300 mg PO TID [facility]; Protocol Last Admin: 11/22/18 10:19 Dose: 300 mg Hydromorphone HCl (Dilaudid) 1 mg IVP Q4H PRN PRN Reason: Pain, moderate (4-7) Last Admin: 11/22/18 05:41 Dose: 1 mg Sodium Chloride (Sodium Chloride 0.9%) 1,000 mls @ 60 mls/hr IV .[id number] [facility] Last Admin: 11/22/18 05:41 Dose: 60 mls/hr Doxycycline Hyclate 100 mg/ (Sodium Chloride) 100 mls @ 100 mls/hr IVPB Q12 [facility]; Protocol Last Admin: 11/22/18 10:16 Dose: 100 mls/hr Cefepime HCl (Maxipime 1gm) 1 gm in 100 mls @ 100 mls/hr IVPB Q8 [facility]; Protocol Stop: 11/29/18 22:01 Last Admin: 11/22/18 05:41 Dose: 100 mls/hr Vancomycin HCl (Vancomycin 1gm) 1 gm in 250 mls @ 167 mls/hr IVPB Q12H [facility]; Protocol Stop: 11/29/18 07:46 Last Admin: 11/22/18 07:30 Dose: 167 mls/hr Levetiracetam (Keppra) 500 mg PO BID [facility] Last Admin: 11/22/18 10:19 Dose: 500 mg Nortriptyline HCl (Pamelor) 10 mg PO HS [facility] Last Admin: 11/21/18 22:06 Dose: 10 mg Ondansetron HCl (Zofran Inj) 4 mg IVP Q6H PRN PRN Reason: Nausea/Vomiting Oxycodone HCl (Oxycodone Immediate Release Tab) 15 mg PO Q6H PRN PRN Reason: Pain, moderate (4-7) Last Admin: 11/21/18 18:32 Dose: 15 mg Trimethoprim/Sulfamethoxazole (Bactrim Ds Tab) 1 tab PO BID [facility]; Protocol Stop: 11/25/18 18:00 - Labs Labs: 11/22/18 06:00 11/22/18 06:00 PT 12.9 SECONDS (9.4-12.5) H 11/20/18 11:05 INR 1.14 11/20/18 11:05 APTT 27.4 Seconds (26.9-38.3) 11/20/18 11:05 Attending/Attestation - Attestation I have personally seen and examined this patient.: Yes I have fully participated in the care of the patient.: Yes I have reviewed all pertinent clinical information, including history, physical exam and plan: Yes
[2018-11-22 08:30] VITALS: BP 111/71; TEMP 97.3; O2SAT 93
[2018-11-22] MEDS: Dexamethasone 4 mg/1 ml IVP SCH (10:19)
--- NOTE | 2018-11-22 12:14 | CP.PCM.PCO ---
Additional Comments - Additional Comments Additional Comments: Pt. admitted with pneumonia, w hx of lung ca with mets. Feels better,denied shortness of breath, palpitations, denied headache, states right sided weakness improved, ambulated to bathroom. Antibiotics per I.D. 6mm Hemorrhage right parietal lobe, w.edema, likely consisitent with mets to brain, per Neuro, rec. pt. f/u with neurosurgeon at [facility], already established,for Gamma therapy. Pt. rec. home .
[2018-11-22 16:41] VITALS: PULSE 84
--- NOTE | 2018-11-22 23:52 | DS ---
HISTORY OF PRESENT ILLNESS: The patient is a 68-year-old, who was seen by Dr. Santos in our office. She was found to be very unstable and short of breath, so she was referred to emergency room where she had CT scan of the head done that shows 6-mm cortical hemorrhage in the right parietal lobe with surrounding edema and there is also vasogenic edema in the left midfrontal and extensive edema on the left side of the alylson. She also was found to have pleural effusion in the right lung base consolidation. The patient was admitted, started on IV antibiotic and nebulizer treatment, and she was started on IV Decadron. Dr. Madsen from ID point of view and Dr. Diaz saw the patient and agreed with continuing on Decadron. The patient started to feel well and wants to go home. PHYSICAL EXAMINATION: GENERAL: Today; she is awake and alert, able to communicate. VITAL SIGNS: She is afebrile, pulse 84, respirations 20, and blood pressure 111/71. LUNGS: Bilateral fair airflow. No rhonchi or crackle. HEART: S1 and S2 audible. ABDOMEN: Soft and nontender. No rebound. No guarding. NEUROLOGIC: The patient is awake and alert, able to communicate. EXTREMITIES: Bilateral legs, no edema. LABORATORY DATA: Sodium 140, potassium 4, chloride 110, CO2 of 25, BUN 8, creatinine 0.4, and blood sugar of 180. C-reactive protein more than 15. WBC 6.7, hemoglobin 9.3, hematocrit 29.4, and platelets 231. Blood culture and urine cultures are negative. ASSESSMENT: 1. Lung cancer with metastasis to the brain. The patient received gamma-knife treatment. She has been getting chemotherapy, but recent chemotherapy was on hold because of recent sickness. 2. Degenerative disk disease. 3. Anemia. 4. Hypotension. PLAN: The patient is being discharged home on Levaquin 500 daily for 5 days and she was given prescription of Decadron 2 mg daily for 7 days. She will follow up with Dr. Santos as an outpatient. Ttio Orozco MD
[2018-11-24] MEDS ORDERED: Tmp-Smz 800 mg-160 mg DS Tab PO SCH (00:01)
== END 2018-11-22 16:52 | disposition home or self-care (01) | DRG 193 ==
LOC: ED 11:05 → ERH 13:01 → 3RNO 20:56 → ERH 22:11 → 3RNO 22:12
PROVIDERS: ADMIT Internal Medicine; ATTEND Internal Medicine
DX: J18.9 Pneumonia, unspecified organism (principal); I61.1 Nontraumatic intracerebral hemorrhage in hemisphere, cortical; G93.6 Cerebral edema; C79.31 Secondary malignant neoplasm of brain; C34.90 Malignant neoplasm of unspecified part of unspecified bronchus or lung; J90 Pleural effusion, not elsewhere classified; G81.94 Hemiplegia, unspecified affecting left nondominant side; R64 Cachexia; J44.0 Chronic obstructive pulmonary disease with (acute) lower respiratory infection; E27.9 Disorder of adrenal gland, unspecified; M50.30 Other cervical disc degeneration, unspecified cervical region; Z87.891 Personal history of nicotine dependence; R41.82 Altered mental status, unspecified; Z68.20 Body mass index [BMI] 20.0-20.9, adult; D64.9 Anemia, unspecified; E89.0 Postprocedural hypothyroidism; G20 Parkinson's disease; K21.9 Gastro-esophageal reflux disease without esophagitis; Y95 Nosocomial condition; Z79.82 Long term (current) use of aspirin; Z85.118 Personal history of other malignant neoplasm of bronchus and lung; Z87.01 Personal history of pneumonia (recurrent); I95.9 Hypotension, unspecified